=== PATIENT | female | born 1950 | race Hispanic/Latino ===

== ENCOUNTER 2017-06-15 19:02 | Emergency (ER) | payer OTHER ==
[2017-06-15] MEDS ORDERED: KETOROLAC 30 MG/ML INJ ONE (19:41)
--- NOTE | 2017-06-15 20:34 | ER ---
Nurse's Notes [facility] Name: Judi Cao Age: 67 yrs Sex: Female : 1950 Arrival Date: 06/15/2017 Time: 19:05 Bed 24 Private MD: Diagnosis: Pain in left upper arm Presentation: 06/15 19:08 Presenting complaint: Patient states: I woke up with a tight/stretching feeling in my la1 left arm this morning, I had surgery jerardo that shoulder about 4 years ago but have not had any problems until now, pt denies recent injury. Transition of care: patient was not received from another setting of care. Onset of symptoms was June 15, 2017. Care prior to arrival: None. 19:08 Method Of Arrival: Ambulatory la1 19:08 Acuity: GEORGE 3 la1 Historical: - Allergies: 19:10 No Known Allergies; la1 - PMHx: 19:10 Anxiety; Asthma; Chronic pain; Cirrhosis; Depression; Diabetes - NIDDM; Hypertension; la1 - PSHx: 19:10 Cholecystectomy; left shoulder; Hysterectomy; Hernia repair; la1 - Immunization history:: Adult Immunizations up to date. - Social history:: Smoking status: Patient/guardian denies using tobacco. Screenin:14 Abuse screen: Denies threats or abuse. Nutritional screening: No deficits noted. tl3 Tuberculosis screening: No symptoms or risk factors identified. Fall Risk None identified. Assessment: 19:14 General: Appears uncomfortable, well groomed, well developed, well nourished, Behavior tl3 is calm, cooperative, appropriate for age. Pain: Complains of pain in left arm. Neuro: Level of Consciousness is awake, alert, obeys commands, Oriented to person, place, time, situation, Appropriate for age Translator Interpreter are equal bilaterally Speech is normal, Facial symmetry appears normal. Cardiovascular: Heart tones S1 S2 present Capillary refill < 3 seconds in bilateral fingers. Respiratory: Airway is patent Trachea midline Respiratory effort is even, unlabored, relaxed, Respiratory pattern is regular, symmetrical, Breath sounds are clear bilaterally. GI: No signs and/or symptoms were reported involving the gastrointestinal system. : No signs and/or symptoms were reported regarding the genitourinary system. EENT: No signs and/or symptoms were reported regarding the EENT system. Derm: No signs and/or symptoms reported regarding the dermatologic system. Musculoskeletal: Parent/caregiver report the patient having numbness in left arm pt reports that she has trouble with ROM with the left arm for a few days, she has numbness and pain. 19:20 Reassessment: Dr Piper at bedside. tl3 Vital Signs: 19:10 BP 143 / 94; Pulse 101; Resp 15; Temp 98.2(TE); Pulse Ox 100% on R/A; Weight 72.57 kg; la1 Height 4 ft. 11 in. (149.86 cm); 19:10 Body Mass Index 32.32 (72.57 kg, 149.86 cm) la1 ED Course: 19:05 Patient arrived in ED. tw3 19:09 Triage completed. la1 19:10 Arm band placed on left wrist. la1 19:11 Andressa Storey, GEMINI is Primary Nurse. tl3 19:14 Dirk Piper MD is Attending Physician. gs 19:14 No apparent distress. Awaiting ED provider evaluation. tl3 19:14 Patient has correct armband on for positive identification. Placed in gown. Bed in low tl3 position. Call light in reach. Side rails up X 1. Adult w/ patient. equipment monitor phototypesetting on. Pulse ox on. NIBP on. 19:14 No provider procedures requiring assistance completed. tl3 20:14 Ultrasound completed. Patient tolerated well. sg3 20:14 Notified ED Physician Piper. sg3 20:34 Berhane Larios MD is Referral Physician. gs 20:34 US Extremity Venous Uni Ltd In Process Unspecified. EDMS Administered Medications: 19:44 Drug: TORadol 30 mg Route: IM; Site: right gluteus; tl3 06/16 01:31 Follow up: Response: No adverse reaction; Medication administered at discharge. tl3 Outcome: 06/15 20:34 Discharge ordered by . gs 21:07 Patient left the ED. tl3 Signatures: Dispatcher [employer] EDMS Malick Mello, RN RN laMinoo Plascencia tw3 Dirk Piper MD MD Anabel Ferraro sg3 Andressa Storey RN RN tl3
--- NOTE | 2017-06-15 20:34 | EDPHYS ---
Physician Documentation [facility] Name: Judi Cao Age: 67 yrs Sex: Female : 1950 Arrival Date: 06/15/2017 Time: 19:05 Bed 24 Private MD: ED Physician Dirk Piper HPI: 06/15 20:50 This 67 yrs old Female presents to ER via Ambulatory with complaints of Arm gs Pain. 20:50 The patient or guardian complains of pain, that is acute. The complaints affect the gs left bicep. Onset: The symptoms/episode began/occurred 2 day(s) ago, and became persistent. Modifying factors: The symptoms are alleviated by nothing. the symptoms are aggravated by movement, lifting weight. Associated signs and symptoms: Pertinent negatives: numbness, tingling. Severity of symptoms: At their worst the symptoms were moderate, in the emergency department the symptoms are unchanged. The patient has experienced similar episodes in the past, a few times, says it hurts side of her neck too. Historical: - Allergies: 19:10 No Known Allergies; la1 - PMHx: 19:10 Anxiety; Asthma; Chronic pain; Cirrhosis; Depression; Diabetes - NIDDM; Hypertension; la1 - PSHx: 19:10 Cholecystectomy; left shoulder; Hysterectomy; Hernia repair; la1 - Immunization history:: Adult Immunizations up to date. - Social history:: Smoking status: Patient/guardian denies using tobacco. ROS: 20:50 All other systems are negative. gs Exam: 20:50 Head/Face: Normocephalic, atraumatic. Eyes: Pupils equal round and reactive to light, gs extra-ocular motions intact. Lids and lashes normal. Conjunctiva and sclera are non-icteric and not injected. Cornea within normal limits. Periorbital areas with no swelling, redness, or edema. ENT: Nares patent. No nasal discharge, no septal abnormalities noted. Tympanic membranes are normal and external auditory canals are clear. Oropharynx with no redness, swelling, or masses, exudates, or evidence of obstruction, uvula midline. Mucous membranes moist. Chest/axilla: Normal chest wall appearance and motion. Nontender with no deformity. No lesions are appreciated. Cardiovascular: Regular rate and rhythm with a normal S1 and S2. No gallops, murmurs, or rubs. Normal PMI, no JVD. No pulse deficits. Respiratory: Lungs have equal breath sounds bilaterally, clear to auscultation and percussion. No rales, rhonchi or wheezes noted. No increased work of breathing, no retractions or nasal flaring. Abdomen/GI: Soft, non-tender, with normal bowel sounds. No distension or tympany. No guarding or rebound. No evidence of tenderness throughout. Back: No spinal tenderness. No costovertebral tenderness. Full range of motion. Skin: Warm, dry with normal turgor. Normal color with no rashes, no lesions, and no evidence of cellulitis. Neuro: Awake and alert, GCS 15, oriented to person, place, time, and situation. Cranial nerves II-XII grossly intact. Motor strength 5/5 in all extremities. Sensory grossly intact. Cerebellar exam normal. Normal gait. 20:50 Constitutional: The patient appears alert, awake. 20:50 Neck: External neck: tenderness, that is mild, of the left trapezius, ROM/movement: pain. 20:50 Musculoskeletal/extremity: Extremities: noted in the left bicep and left tricep: tenderness, ROM: full active range of motion, full passive range of motion, limited active range of motion due to pain, limited passive range of motion due to pain, Pulses: are normal with no appreciated deficits, Sensation intact. 20:56 ECG was reviewed by the Attending Physician. Vital Signs: 19:10 BP 143 / 94; Pulse 101; Resp 15; Temp 98.2(TE); Pulse Ox 100% on R/A; Weight 72.57 kg; la1 Height 4 ft. 11 in. (149.86 cm); 19:10 Body Mass Index 32.32 (72.57 kg, 149.86 cm) la1 MDM: 19:21 Patient medically screened. gs 20:50 Differential diagnosis: tendonitis, cerv radiculopathy, dvt. Data reviewed: vital signs, nurses notes. Response to treatment: the patient's symptoms have mildly improved after treatment, and as a result, I will discharge patient. 06/15 19:23 Order name: US Extremity Venous Uni Ltd; Complete Time: 20:56 06/15 19:23 Order name: EKG; Complete Time: 19:23 06/15 19:23 Order name: EKG - Nurse/Tech; Complete Time: 19:42 gs EC:56 Rate is 96 beats/min. Rhythm is regular. IA interval is normal. QRS interval is normal. gs QT interval is normal. T waves are Normal. No ST changes noted. Clinical impression: Normal ECG. Interpreted by me. Administered Medications: 19:44 Drug: TORadol 30 mg Route: IM; Site: right gluteus; tl3 06/16 01:31 Follow up: Response: No adverse reaction; Medication administered at discharge. tl3 Disposition: 06/15/17 20:34 Discharged to Home. Impression: Pain in left upper arm. - Condition is Stable. - Discharge Instructions: Musculoskeletal Pain. - Prescriptions for Naprosyn 500 mg Oral Tablet - take 1 tablet by ORAL route 2 times per day for 7 days take with food; 14 tablet. - Medication Reconciliation Form, Thank You Letter, Antibiotic Education, Prescription Opioid Use form. - Follow up: Berahne Larios MD; When: 2 - 3 days; Reason: Re-evaluation by your physician. Signatures: Dispatcher [employer] EDMS Malick Mello, RN RN la1 Dirk Piper MD MD Andressa Storey RN RN tl3
--- NOTE | 2017-06-15 20:53 | RAD REPORT ---
EXAM DESCRIPTION: VAS - Extremity Venous Uni Ltd - 06/15/2017 8:34 pm CLINICAL HISTORY: Left arm pain and swelling COMPARISON: None. TECHNIQUE: Real-time sonographic evaluation of the left upper extremity deep venous systems was perf ormed. FINDINGS: Normal compressibility, flow augmentation, phasic flow and spontaneous flow are identified in the left upper extremity deep venous system. No intraluminal filling defects seen. Internal jugul ar and subclavian veins are normal as well. IMPRESSION: No DVT in the left upper extremity.
--- NOTE | 2017-06-16 22:36 | EKG ---
Test Date: 2017-06-15 Test Time: 19:39:59 Security Solutions Engineer: CHERRI MEASUREMENT RESULTS: Intervals: Rate: 96 WI: 146 QRSD: 66 QT: 348 QTc: 439 [place]: P: 39 WI: 146 QRS: 29 T: 53 INTERPRETIVE STATEMENTS: Normal sinus rhythm Normal ECG Compared to ECG 01/09/2017 00:13:42 No significant changes Electronically Signed On 06-16-17 22:35:43 CDT by Nick Coughlin
== END 2017-06-15 21:07 | disposition home or self-care (01) ==
LOC: ER 19:02
DX: M79.622 Pain in left upper arm (principal); I10 Essential (primary) hypertension
CPT/HCPCS: 93005; 93971; 96372; 99284

== ENCOUNTER 2017-08-12 12:54 | Emergency (ER) | payer OTHER ==
[2017-08-12] MEDS ORDERED: MORPHINE 4 MG/ML SYR ONE (15:19)
[2017-08-12] MEDS ORDERED: NA CHLORIDE 0.9% 500 ML ONE (15:20)
[2017-08-12] MEDS ORDERED: ONDANSETRON 4 MG/2 ML VIAL ONE (15:21)
[2017-08-12 15:41] LABS: Absolute Lymphocytes (CBC) 4.1 K/uL (0.7-4.9); Absolute Monocytes 0.8 K/uL (0.1-1.3); Absolute Neutrophil 5.8 K/uL (1.8-8.0); Basophils % 0.7 % (0-1.3); Eosinophils % 2.9 % (0-4.4); Hematocrit 42.3 % (36.0-45.0); Lymphocytes % 37.2 % (15.3-44.8); MCV 93.2 fL (80-100); MPV 9.6 fL (7.6-11.3); RBC Red Blood Cell Count 4.54 M/uL (3.86-4.86)
--- NOTE | 2017-08-12 15:43 | RAD REPORT ---
EXAM DESCRIPTION: RAD - Chest Single View - 08/12/2017 3:17 pm CLINICAL HISTORY: Cough, chest pain COMPARISON: January 2017 TECHNIQUE: AP portable chest image was obtained 1505 hours . FINDINGS: Lung volumes are low. Interstitial markings are accentuated by body habitus and shallow in spiration. No true or significant change from comparison suspected. Trachea is midline. Heart and vas culature are normal. No measurable pleural effusion and no pneumothorax. No gross bony abnormality se en. No acute aortic findings suspected. IMPRESSION: Limited study without acute cardiopulmonary finding. No significant change from comparison.
[2017-08-12 15:46] LABS: Protime INR 0.92
--- NOTE | 2017-08-12 16:08 | EKG ---
Test Date: 2017-08-12 Test Time: 15:15:48 Collections Manager: HOMERO MEASUREMENT RESULTS: Intervals: Rate: 107 MD: 146 QRSD: 70 QT: 334 QTc: 445 [place]: P: 34 MD: 146 QRS: 16 T: 41 INTERPRETIVE STATEMENTS: Sinus tachycardia Otherwise normal ECG Compared to ECG 06/15/2017 19:39:59 Sinus rhythm no longer present Electronically Signed On 08-12-17 16:07:47 CDT by Nick Coughlin
[2017-08-12 16:12] LABS: Bicarbonate 27 mEq/L (21-31); Glucose Level 160 mg/dL (65-120); Potassium 4.6 mEq/L (3.6-5.0); Sodium Level 137 mEq/L (135-145)
[2017-08-12 16:18] LABS: ALT/SGPT 26 IU/L (10-60); AST/SGOT 38 IU/L (10-42); Albumin 4.7 g/dL (3.2-5.5); Alkaline Phosphatase 100 IU/L (42-121); BUN Blood Urea Nitrogen 11 mg/dL (6-20); Bilirubin Direct 0.1 mg/dL (0-0.2); Bilirubin Total 0.2 mg/dL (0.3-1.2); Magnesium 1.9 mg/dL (1.8-2.5); Protein, Total 8.2 g/dL (6.0-8.3)
[2017-08-12 16:43] LABS: Urine Blood NEGATIVE (NEG); Urine Glucose NEGATIVE (NEG); Urine Protein NEGATIVE (NEG); Urine Specific Gravity 1.025 (1.005-1.030); Urine pH 5.5 (5.0-7.0)
--- NOTE | 2017-08-12 18:14 | ER ---
Nurse's Notes [facility] Name: Judi Cao Age: 67 yrs Sex: Female : 1950 Arrival Date: 08/12/2017 Time: 13:00 Bed 2 Private MD: Out, [facility] Diagnosis: Generalized pain, arthralgia, myalgias Presentation: 08/12 13:30 Presenting complaint: Patient states: bilateral ear pain, painful cough, headache and ss body aches x 4 days. Pt reports she had a fever three days ago, but hasn't had one since. Transition of care: patient was not received from another setting of care. Onset of symptoms was August 08, 2017. Risk Assessment: Do you want to hurt yourself or someone else? Patient reports no desire to harm self or others. Initial Sepsis Screen: Does the patient meet any 2 criteria? HR > 90 bpm. Does the patient have a suspected source of infection? Yes: No. Patient's initial sepsis screen is negative. Care prior to arrival: None. 13:30 Method Of Arrival: Ambulatory ss 13:30 Acuity: GEORGE 3 ss Historical: - Allergies: 13:32 No Known Allergies; ss - Home Meds: 15:13 acetaminophen-codeine 300-30 mg Oral tab as needed [Active]; Advair Diskus 250-50 tw2 mcg/dose Inhl dsdv 1 puff 2 times per day [Active]; Lyrica 75 mg Oral 2 times per day [Active]; metformin 1,000 mg Oral tab 1 tab 2 times per day [Active]; metoprolol tartrate 25 mg Oral tab 1 tab once daily [Active]; Symbicort 80-4.5 mcg/actuation inhalation HFAA 2 puffs 2 times per day [Active]; - PMHx: 13:32 Anxiety; Asthma; Chronic pain; Cirrhosis; Depression; Diabetes - NIDDM; Hypertension; ss - PSHx: 13:32 Cholecystectomy; left shoulder; Hysterectomy; Hernia repair; ss - Immunization history:: Adult Immunizations up to date. - Social history:: Smoking status: Patient/guardian denies using tobacco. - Ebola Screening: : Patient denies exposure to infectious person Patient denies travel to an Ebola-affected area in the 21 days before illness onset. Screenin:09 Abuse screen: Denies threats or abuse. Nutritional screening: No deficits noted. tw2 Tuberculosis screening: No symptoms or risk factors identified. Fall Risk None identified. Assessment: 15:08 General: Appears in no apparent distress. obese, well groomed, Behavior is calm, tw2 cooperative, appropriate for age. Pain: Complains of pain in "all over it hurts and yesterday it hurt in my chest real bad". Neuro: Level of Consciousness is awake, alert, obeys commands, Oriented to person, place, time, situation. Cardiovascular: Heart tones S1 S2 Capillary refill < 3 seconds Patient's skin is warm and dry. Respiratory: Reports cough that is non-productive, Airway is patent Respiratory effort is even, unlabored, Respiratory pattern is regular, symmetrical, Breath sounds are clear bilaterally. GI: Abdomen is round non-distended, obese, Bowel sounds present X 4 quads. : No signs and/or symptoms were reported regarding the genitourinary system. EENT: Reports nasal congestion pain in right ear and left ear. Derm: Skin is intact, is healthy with good turgor, Skin temperature is warm. Musculoskeletal: Range of motion: intact in all extremities. 16:18 Reassessment: Patient appears in no apparent distress at this time. Patient and/or tw2 family updated on plan of care and expected duration. Pain level reassessed. Patient is alert, oriented x 3, equal unlabored respirations, skin warm/dry/pink. pt states "it hurts in my sinuses" Patient states feeling better. 17:00 Reassessment: Patient appears in no apparent distress at this time. Patient and/or tw2 family updated on plan of care and expected duration. Pain level reassessed. Patient is alert, oriented x 3, equal unlabored respirations, skin warm/dry/pink. 17:53 Reassessment: Patient appears in no apparent distress at this time. Patient and/or tw2 family updated on plan of care and expected duration. Pain level reassessed. Patient is alert, oriented x 3, equal unlabored respirations, skin warm/dry/pink. 18:26 Reassessment: Patient appears in no apparent distress at this time. Patient and/or tw2 family updated on plan of care and expected duration. Pain level reassessed. Patient is alert, oriented x 3, equal unlabored respirations, skin warm/dry/pink. Vital Signs: 13:32 BP 134 / 88; Pulse 108; Resp 18; Temp 98.2(TE); Pulse Ox 97% on R/A; Weight 77.11 kg; ss Height 4 ft. 11 in. (149.86 cm); Pain 8/10; 15:39 BP 140 / 88; Pulse 103; Resp 16; Pulse Ox 98% on R/A; tw2 16:19 BP 136 / 92; Pulse 97; Resp 17; Pulse Ox 96% on R/A; tw2 17:52 BP 135 / 84; Pulse 102; Resp 17; Pulse Ox 99% on R/A; tw2 13:32 Body Mass Index 34.34 (77.11 kg, 149.86 cm) ss ED Course: 13:00 Patient arrived in ED. sb2 13:01 Out, Town is Private Physician. sb2 13:32 Triage completed. ss 13:32 Arm band placed on right wrist. ss 14:25 No provider procedures requiring assistance completed. Inserted saline lock: 20 gauge tw2 in left antecubital area, using aseptic technique. Blood collected. 15:02 Therese Delacruz, RN is Primary Nurse. tw2 15:04 Tenzin Torrez MD is Attending Physician. kdr 15:08 Placed in gown. Bed in low position. Side rails up X 1. Adult w/ patient. Cardiac tw2 monitor on. Pulse ox on. NIBP on. 15:15 X-ray completed. Portable x-ray completed in exam room. Patient tolerated procedure kc2 well. 15:16 XRAY Chest (1 view) In Process Unspecified. EDMS 15:22 EKG done, by flight technician. reviewed by Tenzin Torrez MD. sm3 18:25 IV discontinued, intact, bleeding controlled, No redness/swelling at site. Pressure tw2 dressing applied. Administered Medications: 15:27 Drug: morphine 2 mg Route: IVP; Site: left antecubital; tw2 16:18 Follow up: Response: No adverse reaction; Pain is decreased tw2 15:27 Drug: Zofran 2 mg Route: IVP; Site: left antecubital; tw2 16:18 Follow up: Response: No adverse reaction tw2 15:29 Drug: NS 0.9% 500 ml Route: IV; Rate: bolus; Site: left antecubital; tw2 16:18 Follow up: Response: No adverse reaction; IV Status: Completed infusion; IV Intake: tw2 500ml Intake: 16:18 IV: 500ml; Total: 500ml. tw2 Outcome: 18:14 Discharge ordered by . kdr 18:25 Discharged to home ambulatory, with significant other. tw2 18:25 Condition: stable 18:25 Discharge instructions given to patient, significant other, Instructed on discharge instructions, follow up and referral plans. Demonstrated understanding of instructions, follow-up care. 18:26 Patient left the ED. tw2 Signatures: Dispatcher [employer] EDMS Tenzin Torrez MD MD kdr Meena Addison, RN RN ss Therese Delacruz RN RN tw2 Alysha De Souza2 Maribell Carrillo 2 Gabriella Lagos 3
--- NOTE | 2017-08-12 18:14 | EDPHYS ---
Physician Documentation [facility] Name: Judi Cao Age: 67 yrs Sex: Female : 1950 Arrival Date: 08/12/2017 Time: 13:00 Bed 2 Private MD: Out, [facility], [facility] ED Physician Tenzin Torrez HPI: 08/12 21:55 This 67 yrs old Female presents to ER via Ambulatory with complaints of Chest kdr Congestion, Ear Pain, Fever. 21:55 The patient has been hurting all over for the past four days including her ears kdr bilaterally.. Onset: The symptoms/episode began/occurred gradually, 4 day(s) ago. Severity of symptoms: At their worst the symptoms were mild in the emergency department the symptoms are unchanged. The patient has not experienced similar symptoms in the past. The patient has not recently seen a physician. Historical: - Allergies: 13:32 No Known Allergies; ss - Home Meds: 15:13 acetaminophen-codeine 300-30 mg Oral tab as needed [Active]; Advair Diskus 250-50 tw2 mcg/dose Inhl dsdv 1 puff 2 times per day [Active]; Lyrica 75 mg Oral 2 times per day [Active]; metformin 1,000 mg Oral tab 1 tab 2 times per day [Active]; metoprolol tartrate 25 mg Oral tab 1 tab once daily [Active]; Symbicort 80-4.5 mcg/actuation inhalation HFAA 2 puffs 2 times per day [Active]; - PMHx: 13:32 Anxiety; Asthma; Chronic pain; Cirrhosis; Depression; Diabetes - NIDDM; Hypertension; ss - PSHx: 13:32 Cholecystectomy; left shoulder; Hysterectomy; Hernia repair; ss - Immunization history:: Adult Immunizations up to date. - Social history:: Smoking status: Patient/guardian denies using tobacco. - Ebola Screening: : Patient denies exposure to infectious person Patient denies travel to an Ebola-affected area in the 21 days before illness onset. ROS: 21:55 Constitutional: Negative for fever, chills, and weight loss - she has had generalized kdr myalgias Eyes: Negative for injury, pain, redness, and discharge, ENT: Negative for injury, pain, and discharge - except for bilatearl ear discomfort - has been cleaning her ears with Q-tips without relief Neck: Negative for injury, pain, and swelling, Cardiovascular: Negative for chest pain, palpitations, and edema, Respiratory: Negative for shortness of breath, cough, wheezing, and pleuritic chest pain, Abdomen/GI: Negative for abdominal pain, nausea, vomiting, diarrhea, and constipation, Back: Negative for injury and pain, : Negative for injury, bleeding, discharge, and swelling, MS/Extremity: Negative for injury and deformity, Skin: Negative for injury, rash, and discoloration, Neuro: Negative for headache, weakness, numbness, tingling, and seizure activity. Psych: Negative for depression, anxiety, suicide ideation, homicidal ideation, and hallucinations, Allergy/Immunology: Negative for hives, rash, and allergies, Endocrine: Negative for neck swelling, polydipsia, polyuria, polyphagia, and marked weight changes, Hematologic/Lymphatic: Negative for swollen nodes, abnormal bleeding, and unusual bruising. Exam: 21:55 Constitutional: This is a well developed, well nourished patient who is awake, alert, kdr and in no acute distress. Head/Face: Normocephalic, atraumatic. Eyes: Pupils equal round and reactive to light, extra-ocular motions intact. Lids and lashes normal. Conjunctiva and sclera are non-icteric and not injected. Cornea within normal limits. Periorbital areas with no swelling, redness, or edema. ENT: Nares patent. No nasal discharge, no septal abnormalities noted. Tympanic membranes are normal and external auditory canals are clear. Oropharynx with no redness, swelling, or masses, exudates, or evidence of obstruction, uvula midline. Mucous membranes moist. Neck: Trachea midline, no thyromegaly or masses palpated, and no cervical lymphadenopathy. Supple, full range of motion without nuchal rigidity, or vertebral point tenderness. No Meningismus. Chest/axilla: Normal chest wall appearance and motion. Nontender with no deformity. No lesions are appreciated. Cardiovascular: Regular rate and rhythm with a normal S1 and S2. No gallops, murmurs, or rubs. Normal PMI, no JVD. No pulse deficits. Respiratory: Lungs have equal breath sounds bilaterally, clear to auscultation and percussion. No rales, rhonchi or wheezes noted. No increased work of breathing, no retractions or nasal flaring. Abdomen/GI: Soft, non-tender, with normal bowel sounds. No distension or tympany. No guarding or rebound. No evidence of tenderness throughout. Back: No spinal tenderness. No costovertebral tenderness. Full range of motion. Skin: Warm, dry with normal turgor. Normal color with no rashes, no lesions, and no evidence of cellulitis. MS/ Extremity: Pulses equal, no cyanosis. Neurovascular intact. Full, normal range of motion. Neuro: Awake and alert, GCS 15, oriented to person, place, time, and situation. Cranial nerves II-XII grossly intact. Motor strength 5/5 in all extremities. Sensory grossly intact. Cerebellar exam normal. Normal gait. Psych: Awake, alert, with orientation to person, place and time. Behavior, mood, and affect are within normal limits. Vital Signs: 13:32 BP 134 / 88; Pulse 108; Resp 18; Temp 98.2(TE); Pulse Ox 97% on R/A; Weight 77.11 kg; ss Height 4 ft. 11 in. (149.86 cm); Pain 8/10; 15:39 BP 140 / 88; Pulse 103; Resp 16; Pulse Ox 98% on R/A; tw2 16:19 BP 136 / 92; Pulse 97; Resp 17; Pulse Ox 96% on R/A; tw2 17:52 BP 135 / 84; Pulse 102; Resp 17; Pulse Ox 99% on R/A; tw2 13:32 Body Mass Index 34.34 (77.11 kg, 149.86 cm) ss MDM: 18:14 Patient medically screened. kdr 21:55 Data reviewed: vital signs, nurses notes, lab test result(s), EKG, radiologic studies. kdr Counseling: I had a detailed discussion with the patient and/or guardian regarding: the historical points, exam findings, and any diagnostic results supporting the discharge/admit diagnosis, lab results, radiology results, the need for outpatient follow up. Special discussion: Based on the patient's history, exam, and Dx evaluation, there is no indication for emergent intervention or inpatient Tx. It is understood by the patient/guardian that if the Sx's persist or worsen they need to return immediately for re-evaluation. Based on the patient's Hx, exam, and Dx evaluation, there is no indication for emergent surgery or inpatient Tx. It is understood by the patient/guardian that if the Sx's persist or worsen they need to return immediately for re-evaluation. I discussed with the patient/guardian in detail that at this point there is no indication for admission to the hospital. It is understood, however, that if the symptoms persist or worsen the patient needs to return immediately for re-evaluation. 08/12 15:04 Order name: Basic Metabolic Panel; Complete Time: 18:12 kdr 08/12 15:04 Order name: BNP; Complete Time: 18:12 kdr 08/12 15:04 Order name: CBC with Diff; Complete Time: 16:14 kdr 08/12 15:04 Order name: LFT's; Complete Time: 18:12 kdr 08/12 15:04 Order name: Magnesium; Complete Time: 18:12 kdr 08/12 15:04 Order name: PT-INR; Complete Time: 16:14 kdr 08/12 15:04 Order name: Ptt, Activated; Complete Time: 16:14 kdr 08/12 15:04 Order name: Troponin (emerg Dept Use Only); Complete Time: 16:14 kdr 08/12 15:04 Order name: XRAY Chest (1 view); Complete Time: 16:14 kdr 08/12 16:34 Order name: Troponin (emerg Dept Use Only); Complete Time: 18:12 kdr 08/12 16:40 Order name: Urine Dipstick--Ancillary (enter results); Complete Time: 18:12 ag 08/12 15:04 Order name: EKG; Complete Time: 15:05 kdr 08/12 15:04 Order name: Cardiac monitoring; Complete Time: 15:14 kdr 08/12 15:04 Order name: EKG - Nurse/Tech; Complete Time: 15:14 kdr 08/12 15:04 Order name: IV Saline Lock; Complete Time: 15:14 kdr 08/12 15:04 Order name: Labs collected and sent; Complete Time: 15:31 kdr 08/12 15:04 Order name: O2 Per Protocol; Complete Time: 15:14 kdr 08/12 15:04 Order name: O2 Sat Monitoring; Complete Time: 15:14 kdr 08/12 15:04 Order name: Urine Dipstick-Ancillary (obtain specimen); Complete Time: 16:24 kdr Administered Medications: 15:27 Drug: morphine 2 mg Route: IVP; Site: left antecubital; tw2 16:18 Follow up: Response: No adverse reaction; Pain is decreased tw2 15:27 Drug: Zofran 2 mg Route: IVP; Site: left antecubital; tw2 16:18 Follow up: Response: No adverse reaction tw2 15:29 Drug: NS 0.9% 500 ml Route: IV; Rate: bolus; Site: left antecubital; tw2 16:18 Follow up: Response: No adverse reaction; IV Status: Completed infusion; IV Intake: tw2 500ml Disposition: 08/12/17 18:14 Discharged to Home. Impression: Generalized pain, arthralgia, myalgias. - Condition is Stable. - Discharge Instructions: Chronic Pain, Pain Without a Known Cause, Chest Wall Pain, [id number], Arthralgia, [id number]. - Medication Reconciliation Form, Thank You Letter, Family Work Release form. - Follow up: Private Physician; When: 2 - 3 days; Reason: If symptoms return, Further diagnostic work-up, Recheck today's complaints, Continuance of care, Re-evaluation by your physician. - Problem is an ongoing problem. - Symptoms have improved. Signatures: Dispatcher [employer] EDTenzin Allen MD MD kdr Meena Addison RN RN ss Therese Delacruz RN RN tw2 Corrections: (The following items were deleted from the chart) 18:26 18:14 08/12/2017 18:14 Discharged to Home. Impression: Generalized pain, arthralgia, tw2 myalgias. Condition is Stable. Forms are Medication Reconciliation Form, Thank You Letter, Antibiotic Education, Prescription Opioid Use. Follow up: Private Physician; When: 2 - 3 days; Reason: If symptoms return, Further diagnostic work-up, Recheck today's complaints, Continuance of care, Re-evaluation by your physician. Problem is an ongoing problem. Symptoms have improved. kdr
== END 2017-08-12 18:26 | disposition home or self-care (01) ==
LOC: ER 12:54
DX: M79.1 Myalgia (principal); M25.50 Pain in unspecified joint; I10 Essential (primary) hypertension; E11.9 Type 2 diabetes mellitus without complications; F32.9 Major depressive disorder, single episode, unspecified; F41.9 Anxiety disorder, unspecified; J45.909 Unspecified asthma, uncomplicated
CPT/HCPCS: 36415; 71045; 80048; 80076; 81003; 83735; 83880; 84484 ×2; 85025; 85610; 85730; 93005; 96361; 96374; 96375; 99284; J2405

== ENCOUNTER 2018-01-01 17:27 | Emergency (ER) | payer OTHER ==
[2018-01-01 18:48] LABS: Absolute Lymphocytes (CBC) 2.8 K/uL (0.7-4.9); Absolute Monocytes 0.4 K/uL (0.1-1.3); Absolute Neutrophil 4.6 K/uL (1.8-8.0); Basophils % 0.9 % (0-1.3); Eosinophils % 2.2 % (0-4.4); Hematocrit 37.6 % (36.0-45.0); Lymphocytes % 34.6 % (15.3-44.8); MCH 30.9 pg (27.0-35.0); MCV 93.2 fL (80-100); MPV 9.7 fL (7.6-11.3); Monocytes % 5.4 % (3.3-12.3); RBC Red Blood Cell Count 4.03 M/uL (3.86-4.86)
[2018-01-01 19:01] LABS: Albumin 4.1 g/dL (3.4-5.0); Bilirubin Total 0.2 mg/dL (0.2-1.0); Potassium 4.4 mmol/L (3.5-5.1); Protein, Total 7.5 g/dL (6.4-8.2)
--- NOTE | 2018-01-01 19:10 | ER ---
Nurse's Notes [facility] Name: Judi Cao Age: 67 yrs Sex: Female : 1950 Arrival Date: 01/01/2018 Time: 17:30 Bed 20 Private MD: Diagnosis: Sciatica of the Left Lower Extremity Presentation: 01/01 17:34 Presenting complaint: Patient states: left leg numbness in the morning after waking up, sv pt moves around during the day and the numbness goes away but the pain remains. Pain is from left hip/buttock down the left leg. Transition of care: patient was not received from another setting of care. Onset of symptoms is unknown. Care prior to arrival: None. 17:34 Method Of Arrival: Ambulatory sv 17:34 Acuity: GEORGE 3 sv 19:30 Risk Assessment: Do you want to hurt yourself or someone else? Patient reports no jd3 desire to harm self or others. Initial Sepsis Screen: Does the patient meet any 2 criteria? No. Patient's initial sepsis screen is negative. Does the patient have a suspected source of infection? No. Patient's initial sepsis screen is negative. Triage Assessment: 17:34 General: Appears uncomfortable, Behavior is calm, cooperative, appropriate for age. sv Pain: Complains of pain in left gluteus za and left leg Pain currently is 9 out of 10 on a pain scale. Neuro: Level of Consciousness is awake, alert, obeys commands, Oriented to person, place, time, situation, Moves all extremities. Full function Gait is steady. Respiratory: Respiratory effort is even, unlabored, Respiratory pattern is regular, symmetrical. Historical: - Allergies: 17:51 No Known Allergies; sv - PMHx: 17:51 Anxiety; Asthma; Chronic pain; Cirrhosis; Depression; Diabetes - NIDDM; Hypertension; sv - PSHx: 17:51 Cholecystectomy; left shoulder; Hysterectomy; Hernia repair; sv - Immunization history:: Flu vaccine is not up to date. - Social history:: Smoking status: Patient/guardian denies using tobacco, Patient/guardian denies using alcohol. - Ebola Screening: : No symptoms or risks identified at this time. Screenin:29 Abuse screen: Denies threats or abuse. Nutritional screening: No deficits noted. jd3 Tuberculosis screening: No symptoms or risk factors identified. Fall Risk Ambulatory Aid- None/Bed Rest/Nurse Assist (0 pts). Gait- Weak (10 pts.). Mental Status- Oriented to own ability (0 pts). Total Nolasco Fall Scale indicates No Risk (0-24 pts). Assessment: 19:02 General: Appears in no apparent distress. Behavior is calm, cooperative, appropriate jd3 for age. Pain: Complains of pain in left hip Pain radiates to left leg Quality of pain is described as sharp. Neuro: Level of Consciousness is awake, alert, obeys commands, Oriented to person, place, time, situation. Cardiovascular: Capillary refill < 3 seconds Patient's skin is warm and dry. Respiratory: Airway is patent Respiratory effort is even, unlabored, Respiratory pattern is regular, symmetrical. GI: No signs and/or symptoms were reported involving the gastrointestinal system. : No signs and/or symptoms were reported regarding the genitourinary system. EENT: No signs and/or symptoms were reported regarding the EENT system. Derm: Skin is intact, Skin is dry, Skin is normal, Skin temperature is warm. Musculoskeletal: Circulation, motion, and sensation intact. Range of motion: intact in all extremities. 19:27 Reassessment: Patient appears in no apparent distress at this time. No changes from jd3 previously documented assessment. Patient and/or family updated on plan of care and expected duration. Pain level reassessed. Patient is alert, oriented x 3, equal unlabored respirations, skin warm/dry/pink. reported understanding of discharge instructions. Vital Signs: 17:34 BP 126 / 74; Pulse 91; Resp 18; Temp 98.9; Pulse Ox 98% ; Weight 77.11 kg; Height 4 ft. sv 11 in. (149.86 cm); Pain 9/10; 19:28 BP 128 / 82; Pulse 90; Resp 17 S; Pulse Ox 99% on R/A; jd3 17:34 Body Mass Index 34.34 (77.11 kg, 149.86 cm) sv ED Course: 17:30 Patient arrived in ED. rg4 17:34 Arm band placed on Patient placed in an exam room, on a stretcher, on pulse oximetry. sv 17:50 Triage completed. sv 17:57 Yung Salazar MD is Attending Physician. wa 18:30 Initial lab(s) drawn, by me, sent to lab. kr2 18:34 Laurie Vargas, RN is Primary Nurse. kr2 19:08 Rivas Stein MD is Referral Physician. 19: Patient has correct armband on for positive identification. Bed in low position. Call jd3 light in reach. Side rails up X 1. 19:29 No provider procedures requiring assistance completed. Patient did not have IV access jd3 during this emergency room visit. Administered Medications: No medications were administered Outcome: 19:09 Discharge ordered by . 19: Discharged to home ambulatory. jd3 19:29 Condition: stable 19:29 Discharge instructions given to patient, Instructed on discharge instructions, follow up and referral plans. medication usage, Demonstrated understanding of instructions, follow-up care, medications, Prescriptions given X 2. 19:30 Patient left the ED. jd3 Signatures: Coreen Germain, RN Trinity Gutierrez rg4 Yung Salazar MD MD wa Davies, Jonathon, RN RN jLaurie Villarreal, RN RN kr2
--- NOTE | 2018-01-01 19:10 | EDPHYS ---
Physician Documentation [facility] Name: Judi Cao Age: 67 yrs Sex: Female : 1950 Arrival Date: 01/01/2018 Time: 17:30 Bed 20 Private MD: ED Physician Yung Salazar HPI: 01/01 18:15 This 67 yrs old Female presents to ER via Ambulatory with complaints of wa NUMBNESS OF LEG. 18:15 The patient presents with pain, that is chronic, numbness L leg . The complaints affect wa the left leg. Context: resulted from an unknown cause, the patient can fully bear weight, the patient is able to ambulate, with mild difficulty, Problem is a result from a previous injury: No. Context: states L buttock area pain radiates to L pinky toe. on-going x 1 year. worse int he morning. improves throughout the day. states taking tylenol and aleve for the pains. sometimes take as many as 12 tylenols due to the pain. worse last 3 days. denies fever or chills. denies incontinence. Onset: The symptoms/episode began/occurred 1 year(s) ago. Modifying factors: The symptoms are alleviated by nothing. the symptoms are aggravated by weight bearing. Associated signs and symptoms: Pertinent positives: numbness, Pertinent negatives calf tenderness, fever, swelling, warmth, weakness. Treatment prior to arrival includes: took 3 tylenols today, COMPONENT LAB TECH. Severity of symptoms: At their worst the symptoms were moderate, in the emergency department the symptoms are actually worse. The patient has experienced similar episodes in the past. The patient has not recently seen a physician. Historical: - Allergies: 17:51 No Known Allergies; sv - PMHx: 17:51 Anxiety; Asthma; Chronic pain; Cirrhosis; Depression; Diabetes - NIDDM; Hypertension; sv - PSHx: 17:51 Cholecystectomy; left shoulder; Hysterectomy; Hernia repair; sv - Immunization history:: Flu vaccine is not up to date. - Social history:: Smoking status: Patient/guardian denies using tobacco, Patient/guardian denies using alcohol. - Ebola Screening: : No symptoms or risks identified at this time. ROS: 18:21 Constitutional: Negative for fever, chills, and weight loss, Eyes: Negative for injury, wa pain, redness, and discharge, ENT: Negative for injury, pain, and discharge, Neck: Negative for injury, pain, and swelling, Cardiovascular: Negative for chest pain, palpitations, and edema, Respiratory: Negative for shortness of breath, cough, wheezing, and pleuritic chest pain, Abdomen/GI: Negative for abdominal pain, nausea, vomiting, diarrhea, and constipation, Back: Negative for injury and pain, : Negative for injury, bleeding, discharge, and swelling, MS/Extremity: Negative for injury and deformity, Skin: Negative for injury, rash, and discoloration, Psych: Negative for depression, anxiety, suicide ideation, homicidal ideation, and hallucinations. 18:21 Neuro: Positive for numbness, of the left leg, Negative for gait disturbance, weakness. 18:21 All other systems are negative. Exam: 18:22 Constitutional: This is a well developed, well nourished patient who is awake, alert, wa and in no acute distress. Head/Face: Normocephalic, atraumatic. Eyes: Pupils equal round and reactive to light, extra-ocular motions intact. Lids and lashes normal. Conjunctiva and sclera are non-icteric and not injected. Cornea within normal limits. Periorbital areas with no swelling, redness, or edema. ENT: Nares patent. No nasal discharge, no septal abnormalities noted. Tympanic membranes are normal and external auditory canals are clear. Oropharynx with no redness, swelling, or masses, exudates, or evidence of obstruction, uvula midline. Mucous membranes moist. Neck: Trachea midline, no thyromegaly or masses palpated, and no cervical lymphadenopathy. Supple, full range of motion without nuchal rigidity, or vertebral point tenderness. No Meningismus. Chest/axilla: Normal chest wall appearance and motion. Nontender with no deformity. No lesions are appreciated. Cardiovascular: Regular rate and rhythm with a normal S1 and S2. No gallops, murmurs, or rubs. Normal PMI, no JVD. No pulse deficits. Respiratory: Lungs have equal breath sounds bilaterally, clear to auscultation and percussion. No rales, rhonchi or wheezes noted. No increased work of breathing, no retractions or nasal flaring. Abdomen/GI: Soft, non-tender, with normal bowel sounds. No distension or tympany. No guarding or rebound. No evidence of tenderness throughout. Back: No spinal tenderness. No costovertebral tenderness. Full range of motion. Skin: Warm, dry with normal turgor. Normal color with no rashes, no lesions, and no evidence of cellulitis. Neuro: Awake and alert, GCS 15, oriented to person, place, time, and situation. Cranial nerves II-XII grossly intact. Motor strength 5/5 in all extremities. Sensory grossly intact. Cerebellar exam normal. Normal gait. Psych: Awake, alert, with orientation to person, place and time. Behavior, mood, and affect are within normal limits. 18:22 Musculoskeletal/extremity: Extremities: grossly normal except: Tender to deep palpation of the L glut. positive SLR on the left side. no swelling, edema, redness, or increased warmth noted on the left leg. normothermic. nml coloration. 2+ DP pulses bilaterally. Vital Signs: 17:34 BP 126 / 74; Pulse 91; Resp 18; Temp 98.9; Pulse Ox 98% ; Weight 77.11 kg; Height 4 ft. sv 11 in. (149.86 cm); Pain 9/10; 19:28 BP 128 / 82; Pulse 90; Resp 17 S; Pulse Ox 99% on R/A; jd3 17:34 Body Mass Index 34.34 (77.11 kg, 149.86 cm) sv MDM: 17:57 Patient medically screened. wa 18:23 Differential diagnosis: symptoms concerning for sciatica. no incontinence. consider wa valium to augment pain control. close f/u with neurology. concern for chronic supratherapeutic use of tylenol. advised against high doses over 4 grams per day. will check LFTs. pt carries a dx of cirrhosis of the liver however. 19:07 Data reviewed:. Test interpretation: by ED physician or midlevel provider: labs noted wa for hyperglycemia. LFTs wnl. . ED course: will d/c with meds and close f/u with neurology for further eval. 01/01 18:07 Order name: CBC with Diff; Complete Time: 18:59 wa 01/01 18:07 Order name: CMP; Complete Time: 19:06 ks Administered Medications: No medications were administered Disposition: 01/01/18 19:09 Discharged to Home. Impression: Sciatica of the Left Lower Extremity. - Condition is Stable. - Discharge Instructions: Sciatica, [id number]. - Prescriptions for Valium 5 mg Oral Tablet - take 1 tablet by ORAL route At bedtime As needed; 6 tablet. Prednisone 20 mg Oral Tablet - take 2 tablets by ORAL route once daily for 4 days; 8 tablet. - Medication Reconciliation Form, Thank You Letter, Antibiotic Education, Prescription Opioid Use form. - Follow up: Rivas Stein MD; When: 2 - 3 days; Reason: Recheck today's complaints. - Problem is an ongoing problem. - Symptoms are unchanged. - Notes: follow up with the neurologist within 2-3 days for further evaluation. take the valium with the tylenol and aleve to help with the pain. take the prednisone as prescribed. take your blood sugar medicine while on prednisone as it will increase your blood sugar levels. do not take more than 8 pills of acetaminophen a day as it has the potential to damage your liver as discussed with you Signatures: Dispatcher [employer] Coreen Field RN RN Yung Salazar MD MD wa Davies, Jonathon, RN RN jd3 Corrections: (The following items were deleted from the chart) 19:30 19:09 01/01/2018 19:09 Discharged to Home. Impression: Sciatica of the Left Lower jd3 Extremity. Condition is Stable. Forms are Medication Reconciliation Form, Thank You Letter, Antibiotic Education, Prescription Opioid Use. Follow up: Rivas Stein; When: 2 - 3 days; Reason: Recheck today's complaints. Problem is an ongoing problem. Symptoms are unchanged. sanju
== END 2018-01-01 19:30 | disposition home or self-care (01) ==
LOC: ER 17:27
DX: M54.32 Sciatica, left side (principal)
CPT/HCPCS: 36415; 80053; 85025; 99283

== ENCOUNTER 2018-01-07 14:07 | Inpatient (IN) | payer OTHER ==
[2018-01-07] MEDS ORDERED: LEVALBUTEROL 1.25 MG/3 ML NEB ONE (14:48)
[2018-01-07] MEDS ORDERED: METHYLPREDNISOLONE 125 MG INJ ONE (14:48)
[2018-01-07] MEDS ORDERED: ONDANSETRON 4 MG/2 ML VIAL ONE (14:53)
--- NOTE | 2018-01-07 15:03 | RAD REPORT ---
EXAM DESCRIPTION: RAD - Chest Single View - 01/07/2018 2:55 pm CLINICAL HISTORY: DYSPNEA Chest pain. COMPARISON: Chest Single View dated 08/12/2017; Chest Single View dated 01/09/2017; Chest Single View dated 12/10/2016 FINDINGS: Portable technique limits examination quality. The lungs are mildly underinflated but grossly clear. The heart is normal in size. No displaced fract ures. IMPRESSION: Mild underinflated lungs.
[2018-01-07] MEDS ORDERED: NA CHLORIDE 0.9% 500 ML ONE ×2 (15:10→15:59)
[2018-01-07] MEDS ORDERED: ACETAMINOPHEN 500 MG TAB ONE (15:47)
[2018-01-07] MEDS ORDERED: IBUPROFEN 400 MG TAB ONE (15:48)
[2018-01-07 15:52] LABS: Absolute Lymphocytes (CBC) 1.6 K/uL (0.7-4.9); Absolute Monocytes 0.7 K/uL (0.1-1.3); Absolute Neutrophil 8.2 K/uL (1.8-8.0); Basophils % 0.5 % (0-1.3); Eosinophils % 1.5 % (0-4.4); Hematocrit 39.6 % (36.0-45.0); Lymphocytes % 15.1 % (15.3-44.8); MCH 31.6 pg (27.0-35.0); MCV 92.3 fL (80-100); Monocytes % 6.9 % (3.3-12.3); RBC Red Blood Cell Count 4.29 M/uL (3.86-4.86)
[2018-01-07 16:07] LABS: ALT/SGPT 124 U/L (12-78); AST/SGOT 264 U/L (15-37); Albumin 3.9 g/dL (3.4-5.0); Alkaline Phosphatase 116 U/L (45-117); BUN Blood Urea Nitrogen 20 mg/dL (7-18); Bicarbonate 21 mmol/L (21-32); Bilirubin Direct 0.2 mg/dL (0-0.2); Bilirubin Total 0.4 mg/dL (0.2-1.0); CKMB Creatine Kinase MB < 1.0 ng/mL (0.3-3.6); Creatine Phosphokinase 56 U/L (26-192); Glucose Level 212 mg/dL (74-106); Lipase 203 U/L (73-393); Magnesium 1.9 mg/dL (1.8-2.4); NT PRO-BNP 71 pg/mL (<125); Potassium 4.1 mmol/L (3.5-5.1); Protein, Total 7.7 g/dL (6.4-8.2); Sodium Level 136 mmol/L (136-145); Troponin (Emerg Dept Use Only) < 0.02 ng/mL (0.0-0.045)
--- NOTE | 2018-01-07 16:55 | RAD REPORT ---
EXAM DESCRIPTION: CT - Abdomen Pelvis W Contrast - 01/07/2018 4:37 pm CLINICAL HISTORY: Abdominal pain, hypertension, prior hysterectomy, cholecystectomy and hernia repai r COMPARISON: None. TECHNIQUE: Biphasic, helical CT imaging of the abdomen and pelvis was performed following 100 ml non -ionic IV contrast. No oral contrast. All CT scans are performed using dose optimization technique as appropriate and may include automated exposure control or mA/KV adjustment according to patient size. FINDINGS: No suspicious findings in the lung bases. The liver, spleen, and pancreas show no focal findings. Fatty infiltration of liver is present. Gallb ladder is surgically absent. Biliary tree within normal limits. Symmetric renal function is seen with no hydronephrosis or suspicious renal mass. No pyelonephritis o r acute renal parenchymal process. No adrenal abnormality. Urinary bladder shows no suspicious findin g. Calcification is present without mass at the vaginal cuff. Ovaries are absent or atrophic. No adne xal mass. No dilated bowel loops or bowel wall thickening. Appendix is normal. No free air, free fluid or infla mmatory stranding. No mass or bulky lymphadenopathy. There is complete atrophy of the right-sided rectus abdominis musculature. There is a pronounced laxi ty to the right-side anterior abdominal wall. There is a pronounced bulging of the right side of the abdomen without a measurable defect in the abdominal wall fascia. Disc and bony degenerative changes are present. No pathologic bone process. IMPRESSION: No obstruction, free air or surgically emergent finding. Patient has right-sided abdominal wall muscle atrophy with a pronounced protrusion of the right later al abdomen and abdominal contents. There is thinning and convex bulging of the abdominal wall fascia but no large or measurable hernia defect. Diffuse fatty infiltration of the liver.
[2018-01-07 17:15] LABS: Urine Blood NEGATIVE (NEG); Urine Glucose TRACE (NEG); Urine Protein NEGATIVE (NEG); Urine pH 5.5 (5.0-7.0)
[2018-01-07] MEDS ORDERED: CEFTRIAXONE/SWI 1gm 1 GM/10 ML SYR ONE (17:22)
[2018-01-07 17:28] LABS: Urine Bacteria LOADED /HPF (<20); Urine Culture Reflex Order NOT NEEDED; Urine RBC NONE SEEN /HPF (NONE SEEN)
[2018-01-07 17:31] LABS: Platelet Estimate ADEQ
[2018-01-07 17:32] LABS: Blood Morphology Comment NOT SEEN (NOT SEEN)
[2018-01-07] MEDS ORDERED: HYDRALAZINE HCL 20 MG/ML VIAL IV PRN (17:36)
--- NOTE | 2018-01-07 17:39 | EDPHYS ---
Physician Documentation [facility] Name: Judi Cao Age: 67 yrs Sex: Female : 1950 Arrival Date: 01/07/2018 Time: 14:11 Bed 15 Private MD: ED Physician Derek Hinton HPI: 01/07 14:42 This 67 yrs old Female presents to ER via EMS with complaints of High Blood rn Sugar. 14:42 REports at hair salon today, felt bad this morning with chills and sob, felt worse at [facility], got lightheaded and didn't feel ok, no syncope, denies taking her metformin today. + chest pain and sob. + nausea. . Onset: The symptoms/episode began/occurred this morning. Severity of symptoms: At their worst the symptoms were moderate in the emergency department the symptoms are unchanged. The patient has experienced similar episodes in the past. The patient has not recently seen a physician. Historical: - Allergies: 14:18 No Known Allergies; tw2 - Home Meds: 14:16 acetaminophen-codeine 300-30 mg Oral tab as needed [Active]; Advair Diskus 250-50 tw2 mcg/dose Inhl dsdv 1 puff 2 times per day [Active]; Lyrica 75 mg Oral 2 times per day [Active]; metformin 1,000 mg Oral tab 1 tab 2 times per day [Active]; Symbicort 80-4.5 mcg/actuation inhalation HFAA 2 puffs 2 times per day [Active]; Lisinopril Oral [Active]; - PMHx: 14:16 Anxiety; Asthma; Chronic pain; Cirrhosis; Depression; Diabetes - NIDDM; Hypertension; tw2 - PSHx: 14:16 Cholecystectomy; left shoulder; Hysterectomy; Hernia repair; tw2 - Immunization history:: Adult Immunizations. - Social history:: Smoking status: . - Ebola Screening: : Patient denies travel to an Ebola-affected area in the 21 days before illness onset. - Family history:: not pertinent. - Hospitalizations: : No recent hospitalization is reported. ROS: 14:42 Constitutional: +fever and chills rn 14:44 Eyes: Negative for injury, pain, redness, and discharge, Neck: Negative for injury, and rn swelling, Cardiovascular: Negative for palpitations, and edema, Respiratory: + sob Abdomen/GI: + nausea MS/Extremity: Negative for injury and deformity, Skin: Negative for injury, rash, and discoloration, Neuro: + generalized weakness Exam: 14:44 Constitutional: This is a well developed, well nourished patient who is awake, alert, rn + mild tachypnea Head/Face: Normocephalic, atraumatic. Eyes: Pupils equal round and reactive to light, extra-ocular motions intact. Lids and lashes normal. Conjunctiva and sclera are non-icteric and not injected. Cornea within normal limits. Periorbital areas with no swelling, redness, or edema. ENT: dry MM, no stridor Neck: + mild cervical LAD, no masses, no crepitus Cardiovascular: regular, tachycardic, no murmur Respiratory: + moderate tachypnea with diffuse wheezing, no retractions, + speaking 3-4 word sentences Abdomen/GI: soft, non-tender, + large right sided ventral hernia, no rebound MS/ Extremity: Pulses equal, no cyanosis. Neurovascular intact. Full, normal range of motion. Equal circumference. Neuro: Awake and alert, GCS 15, oriented to person, place, time, and situation. Cranial nerves II-XII grossly intact. Motor strength 5/5 in all extremities. Sensory grossly intact. Vital Signs: 14:13 BP 117 / 81; Pulse 84; Resp 22; Temp 100(O); Pulse Ox 97% on R/A; Pain 10/10; tw2 14:59 BP 154 / 92; Pulse 126; Resp 28; Pulse Ox 100% on Nebulizer Mask; tw2 15:09 Pulse 138; tw2 15:30 Temp 102.2(O); mh5 15:37 BP 138 / 98; Pulse 144; Temp 102.2(O); tw2 16:07 BP 153 / 89; Pulse 133; Resp 30; Pulse Ox 96% on R/A; tw2 17:18 BP 113 / 72; Pulse 112; Resp 20 S; Temp 100.6(TE); Pulse Ox 96% on R/A; iw 17:57 Temp 100.1(O); iw 18:17 BP 118 / 74; Pulse 107; Resp 23; Temp 100.1(O); Pulse Ox 97% on R/A; tw2 19:30 BP 118 / 71; Pulse 102; Resp 23; Temp 98.1(O); Pulse Ox 96% on R/A; cc3 14:59 provider notified of elevated HR tw2 15:09 provider notified. iv fluids just started, will continue to monitor tw2 15:37 provider notified of elevation of HR and temperature, tw2 MDM: 14:16 Patient medically screened. rn 17:36 Differential Diagnosis hyperglycemia, dehydration, UTI, pneumonia, asthma. Data rn reviewed: vital signs, nurses notes, lab test result(s), EKG, radiologic studies, CT scan, plain films, and as a result, I will admit patient. Counseling: I had a detailed discussion with the patient and/or guardian regarding: the historical points, exam findings, and any diagnostic results supporting the discharge/admit diagnosis, lab results, radiology results, the need for further work-up and treatment in the hospital. Response to treatment: the patient's symptoms have mildly improved after treatment, and as a result, I will admit patient. Admission orders: after a detailed discussion of the patient's condition and case, the admit orders are written by me. ED course: Pt doesn't feel well, only + finding is UTI, no acute findings in cxr or ct abdomen, HR improved from 140s with fluids and motrin, partially temperature related, and responded well to 1 L bolus. Admitted to Dr. Donovan for UTI, dehydration. . 01/07 14:23 Order name: Blood Culture Adult (2) rn 01/07 14:23 Order name: BMP; Complete Time: 16:21 rn 01/07 14:23 Order name: CBC with Diff; Complete Time: 17:32 rn 01/07 14:23 Order name: Ckmb; Complete Time: 16:21 rn 01/07 14:23 Order name: CPK; Complete Time: 16:21 rn 01/07 14:23 Order name: Hepatic Function; Complete Time: 16:21 rn 01/07 14:23 Order name: Lipase; Complete Time: 16:21 rn 01/07 14:23 Order name: Magnesium; Complete Time: 16:21 rn 01/07 14:23 Order name: NT PRO-BNP; Complete Time: 16:21 rn 01/07 14:23 Order name: Troponin (emerg Dept Use Only); Complete Time: 16:21 rn 01/07 14:23 Order name: Procalcitonin; Complete Time: 16:42 rn 01/07 14:23 Order name: Flu; Complete Time: 15:44 rn 01/07 14:44 Order name: Strep; Complete Time: 15:44 rn 01/07 15:30 Order name: Throat Culture EDFL 01/07 16:43 Order name: Urine Microscopic Only; Complete Time: 17:31 rn 01/07 16:43 Order name: Urine Culture rn 01/07 17:10 Order name: Urine Dipstick--Ancillary (enter results); Complete Time: 17:31 bd 01/07 17:31 Order name: Manual Differential; Complete Time: 17:32 EDMS 01/07 17:43 Order name: Lactate EDMS 01/07 17:43 Order name: Urinalysis EDMS 01/07 17:43 Order name: CBC with Automated Diff EDMS 01/07 17:43 Order name: CBC with Automated Diff EDMS 01/07 17:43 Order name: CBC with Automated Diff EDMS 01/07 17:43 Order name: CBC with Automated Diff EDMS 01/07 17:43 Order name: Comprehensive Metabolic Panel EDMS 01/07 17:43 Order name: Comprehensive Metabolic Panel EDMS 01/07 17:43 Order name: Comprehensive Metabolic Panel EDMS 01/07 17:43 Order name: Comprehensive Metabolic Panel EDMS 01/07 17:43 Order name: Magnesium EDMS 01/07 17:43 Order name: Magnesium EDMS 01/07 14:23 Order name: XRAY CXR (1 view); Complete Time: 15:05 rn 01/07 14:23 Order name: EKG; Complete Time: 14:23 rn 01/07 14:23 Order name: Cardiac monitoring; Complete Time: 14:59 rn 01/07 14:23 Order name: EKG - Nurse/Tech; Complete Time: 14:59 rn 01/07 14:23 Order name: IV Saline Lock; Complete Time: 14:59 rn 01/07 14:23 Order name: Labs collected and sent; Complete Time: 14:59 rn 01/07 14:23 Order name: O2 Per Protocol; Complete Time: 14:59 rn 01/07 14:23 Order name: O2 Sat Monitoring; Complete Time: 14:59 rn 01/07 15:11 Order name: Labs - recollect needed; Complete Time: 15:43 bd 01/07 15:15 Order name: CT Abd/Pelvis - W/Contrast; Complete Time: 16:59 rn 01/07 16:43 Order name: Urine Dipstick-Ancillary (obtain specimen); Complete Time: 17:07 rn 01/07 17:43 Order name: Respiratory Therapy Consult EDFL 01/07 17:43 Order name: Consistent Carb (ADA) 2000 Mikal EDMS 01/07 17:43 Order name: Magnesium EDMS 01/07 17:43 Order name: Magnesium EDFL 01/07 17:43 Order name: Blood Culture EDMS 01/07 17:43 Order name: Patient Safety Orders EDMS 01/07 17:48 Order name: EKG Electrocardiogram EDMS 01/07 18:14 Order name: Glucose, Ancillary Testing EDMS 01/07 18:14 Order name: Glucose, Ancillary Testing EDMS Administered Medications: 14:48 Drug: Zofran 2 mg Route: IVP; Site: left antecubital; tw2 15:49 Follow up: Response: No adverse reaction; Nausea is decreased tw2 14:55 Drug: SOLU-Medrol 125 mg Route: IVP; Site: left antecubital; tw2 15:49 Follow up: Response: No adverse reaction tw2 14:55 Drug: Xopenex (3) 1.25 mg Route: Inhalation; tw2 15:06 Drug: NS 0.9% 500 ml Route: IV; Rate: bolus; Site: left antecubital; tw2 16:00 Follow up: Response: No adverse reaction; IV Status: Completed infusion; IV Intake: iw 500ml 15:42 Drug: Motrin 800 mg Route: PO; tw2 17:57 Follow up: Temp 100.1 Oral; Response: No adverse reaction; Temperature is decreased iw 15:53 Drug: NS 0.9% 500 ml Route: IV; Rate: bolus; Site: left antecubital; tw2 17:30 Follow up: Response: No adverse reaction; IV Status: Completed infusion; IV Intake: tw2 500ml 17:29 Drug: Rocephin - (cefTRIAXone) 1 grams {Note: given over 5 min, IVP.} Route: IVPB; iw Infused Over: 30 mins; Site: left antecubital; 17:35 Follow up: Response: No adverse reaction; No adverse reaction, IVP available on from tw2 pharmacy.; IV Status: Completed infusion Point of Care Testing: Blood Glucose: 14:54 Blood Glucose: 231 mg/dL; tw2 18:11 Blood Glucose: 251 mg/dL; mh5 14:54 per Moy Funk tw2 Ranges: Critical Glucose Levels:Adult <50 mg/dl or >400 mg/dl <40 mg/dl or >180 mg/dl Disposition: 01/07/18 17:38 Hospitalization ordered by Mike Donovan for Inpatient Admission. Preliminary diagnosis are Urinary tract infection, site not specified, Hyperglycemia, unspecified, Dehydration. - Bed requested for Telemetry/MedSurg (Inpatient). - Status is Inpatient Admission. cc3 - Condition is Stable. - Problem is new. - Symptoms have improved. UTI on Admission? Yes Signatures: Dispatcher [employer] EDMS Andria Tamayo Irene, RN RN Derek Hinton MD MD rn Wise, Tara, RN RN 2 Lindy Dillard cc3 Corrections: (The following items were deleted from the chart) 18:06 17:38 Hospitalization Ordered by Mike Donovan DO for Inpatient Admission. Preliminary bd diagnosis is Urinary tract infection, site not specified; Hyperglycemia, unspecified; Dehydration. Bed requested for Telemetry/MedSurg (Inpatient). Status is Inpatient Admission. Condition is Stable. Problem is new. Symptoms have improved. UTI on Admission? Yes. rn 20:06 18:06 01/07/2018 17:38 Hospitalization Ordered by Mike Donovan DO for Inpatient cc3 Admission. Preliminary diagnosis is Urinary tract infection, site not specified; Hyperglycemia, unspecified; Dehydration. Bed requested for Telemetry/MedSurg (Inpatient). Status is Inpatient Admission. Condition is Stable. Problem is new. Symptoms have improved. UTI on Admission? Yes. bd
--- NOTE | 2018-01-07 17:39 | ER ---
Nurse's Notes [facility] Name: Judi Cao Age: 67 yrs Sex: Female : 1950 Arrival Date: 01/07/2018 Time: 14:11 Bed 15 Private MD: Diagnosis: Urinary tract infection, site not specified;Hyperglycemia, unspecified;Dehydration Presentation: 01/07 14:06 Presenting complaint: EMS states: pt was at hair salon, started sudden onset chills, no tw2 fever, her blood sugar was 237, she didn't take her metformin today and hasnt been checking her sugars but she did eat today, NKDA, Hx: DM, Htn, Cirrhosis c/o b/l leg pain. Transition of care: patient was not received from another setting of care. Onset of symptoms was January 07, 2018. Risk Assessment: Do you want to hurt yourself or someone else? Patient reports no desire to harm self or others. Initial Sepsis Screen: Does the patient meet any 2 criteria? No. Patient's initial sepsis screen is negative. Does the patient have a suspected source of infection? No. Patient's initial sepsis screen is negative. Care prior to arrival: Glucose check: 237. 14:06 Method Of Arrival: EMS: [facility] tw2 14:06 Acuity: GEORGE 3 tw2 Historical: - Allergies: 14:18 No Known Allergies; tw2 - Home Meds: 14:16 acetaminophen-codeine 300-30 mg Oral tab as needed [Active]; Advair Diskus 250-50 tw2 mcg/dose Inhl dsdv 1 puff 2 times per day [Active]; Lyrica 75 mg Oral 2 times per day [Active]; metformin 1,000 mg Oral tab 1 tab 2 times per day [Active]; Symbicort 80-4.5 mcg/actuation inhalation HFAA 2 puffs 2 times per day [Active]; Lisinopril Oral [Active]; - PMHx: 14:16 Anxiety; Asthma; Chronic pain; Cirrhosis; Depression; Diabetes - NIDDM; Hypertension; tw2 - PSHx: 14:16 Cholecystectomy; left shoulder; Hysterectomy; Hernia repair; tw2 - Immunization history:: Adult Immunizations. - Social history:: Smoking status: . - Ebola Screening: : Patient denies travel to an Ebola-affected area in the 21 days before illness onset. - Family history:: not pertinent. - Hospitalizations: : No recent hospitalization is reported. Screenin:18 Abuse screen: Denies threats or abuse. Nutritional screening: No deficits noted. tw2 Tuberculosis screening: No symptoms or risk factors identified. Fall Risk None identified. Assessment: 14:18 General: Appears in no apparent distress. Behavior is appropriate for age. Pain: tw2 Complains of pain in right leg and left leg. Neuro: Level of Consciousness is awake, alert, obeys commands, Oriented to person, place, time, situation. Cardiovascular: Denies chest pain, shortness of breath, Heart tones S1 S2 Capillary refill < 3 seconds Patient's skin is warm and dry. Respiratory: Airway is patent Respiratory effort is even, unlabored, Respiratory pattern is tachypnea. GI: Abdomen is round distended, Bowel sounds present X 4 quads. : No signs and/or symptoms were reported regarding the genitourinary system. EENT: No deficits noted. Derm: Skin is clammy. Musculoskeletal: Range of motion: intact in all extremities, limited in all extremities. 14:48 Reassessment: pt started vomiting at this time, she says "it taste like pope[place] tw2 chicken". 16:08 Reassessment: Patient and/or family updated on plan of care and expected duration. Pain tw2 level reassessed. pt c/o headache and chills, pt has no blanket at this time, cool washcloth applied to forehead, pt denies nauseousness at this time. 17:21 Reassessment: Patient appears in no apparent distress at this time. Patient and/or iw family updated on plan of care and expected duration. Pain level reassessed. Patient is alert, oriented x 3, equal unlabored respirations, skin warm/dry/pink. Dr. Donovan at bedside to assess pt and update pt on POC. 17:40 Reassessment: Patient appears in no apparent distress at this time. pt assisted to iw bedside commode, VSS. 19:15 Reassessment: Patient appears in no apparent distress at this time. Patient and/or cc3 family updated on plan of care and expected duration. Pain level reassessed. Patient is alert, oriented x 3, equal unlabored respirations, skin warm/dry/pink. Received patient from morning shift RN Therese as a case of UTI for admission to room 205 after shift change. With IV cannula gauge 20 at the left ACV saline locked. 19:35 Reassessment: Called for report at extension [id number] and as per charge nurse Russell the cc3 nurse who will receive will just call me back. 19:50 Reassessment: Report handed over to GEMINI Hernandez for continuity of care. cc3 20:05 Reassessment: Patient appears in no apparent distress at this time. Patient and/or cc3 family updated on plan of care and expected duration. Pain level reassessed. Patient is alert, oriented x 3, equal unlabored respirations, skin warm/dry/pink. Patient left ER for admission vitally stable by wheelchair escorted by microfilm technician Mat and patient's . Vital Signs: 14:13 BP 117 / 81; Pulse 84; Resp 22; Temp 100(O); Pulse Ox 97% on R/A; Pain 10/10; tw2 14:59 BP 154 / 92; Pulse 126; Resp 28; Pulse Ox 100% on Nebulizer Mask; tw2 15:09 Pulse 138; tw2 15:30 Temp 102.2(O); mh5 15:37 BP 138 / 98; Pulse 144; Temp 102.2(O); tw2 16:07 BP 153 / 89; Pulse 133; Resp 30; Pulse Ox 96% on R/A; tw2 17:18 BP 113 / 72; Pulse 112; Resp 20 S; Temp 100.6(TE); Pulse Ox 96% on R/A; iw 17:57 Temp 100.1(O); iw 18:17 BP 118 / 74; Pulse 107; Resp 23; Temp 100.1(O); Pulse Ox 97% on R/A; tw2 19:30 BP 118 / 71; Pulse 102; Resp 23; Temp 98.1(O); Pulse Ox 96% on R/A; cc3 14:59 provider notified of elevated HR tw2 15:09 provider notified. iv fluids just started, will continue to monitor tw2 15:37 provider notified of elevation of HR and temperature, tw2 ED Course: 14:11 Patient arrived in ED. tw2 14:13 Triage completed. tw2 14:14 Arm band placed on. tw2 14:16 Derek Hinton MD is Attending Physician. rn 14:18 Placed in gown. Bed in low position. Side rails up X2. nurse monitoring on. Pulse ox on. tw2 NIBP on. 14:22 Therese Delacruz, GEMINI is Primary Nurse. tw2 14:43 EKG done, by agriscience technology instructor. reviewed by Derek Hinton MD. 3 14:45 Initial lab(s) drawn, by ri, sent to lab. First set of blood cultures drawn Second set mh5 of blood cultures drawn by ri, Flu and/or RSV swab sent to lab. Strep swab sent to lab. 14:56 XRAY CXR (1 view) In Process Unspecified. EDMS 15:04 Inserted saline lock: 20 gauge in left antecubital area, using aseptic technique. Blood mh5 collected. 15:06 Strep Sent. mh5 15:06 Flu Sent. mh5 15:07 Procalcitonin Sent. mh5 15:07 Blood Culture Adult (2) Sent. mh5 15:07 BMP Sent. 5 15:07 CBC with Diff Sent. mh5 15:07 Ckmb Sent. mh5 15:07 Lipase Sent. mh5 15:08 Magnesium Sent. mh5 15:08 NT PRO-BNP Sent. mh5 15:08 Troponin (emerg Dept Use Only) Sent. mh5 15:08 CPK Sent. mh5 15:08 Hepatic Function Sent. mh5 15:19 REPEAT EKG DONE. sm3 15:30 Radiology exam delayed due to lab results not completed at this time. (BUN/Creatinine). vr 15:42 Lab(s) recollected, by ri, sent to lab. 5 15:52 Radiology exam delayed due to lab results not completed at this time. (BUN/Creatinine). vm2 16:[address] vr 16:37 CT completed. Patient tolerated procedure well. Patient moved back from CT. nj 16:37 CT Abd/Pelvis - W/Contrast In Process Unspecified. EDMS 17:38 Mike Donovan DO is Hospitalizing Provider. rn 18:57 Report given to GEMINI Israel. tw2 19:50 No provider procedures requiring assistance completed. Patient admitted, IV remains in cc3 place. Administered Medications: 14:48 Drug: Zofran 2 mg Route: IVP; Site: left antecubital; tw2 15:49 Follow up: Response: No adverse reaction; Nausea is decreased tw2 14:55 Drug: SOLU-Medrol 125 mg Route: IVP; Site: left antecubital; tw2 15:49 Follow up: Response: No adverse reaction tw2 14:55 Drug: Xopenex (3) 1.25 mg Route: Inhalation; tw2 15:06 Drug: NS 0.9% 500 ml Route: IV; Rate: bolus; Site: left antecubital; tw2 16:00 Follow up: Response: No adverse reaction; IV Status: Completed infusion; IV Intake: iw 500ml 15:42 Drug: Motrin 800 mg Route: PO; tw2 17:57 Follow up: Temp 100.1 Oral; Response: No adverse reaction; Temperature is decreased iw 15:53 Drug: NS 0.9% 500 ml Route: IV; Rate: bolus; Site: left antecubital; tw2 17:30 Follow up: Response: No adverse reaction; IV Status: Completed infusion; IV Intake: tw2 500ml 17:29 Drug: Rocephin - (cefTRIAXone) 1 grams {Note: given over 5 min, IVP.} Route: IVPB; iw Infused Over: 30 mins; Site: left antecubital; 17:35 Follow up: Response: No adverse reaction; No adverse reaction, IVP available on from tw2 pharmacy.; IV Status: Completed infusion Point of Care Testing: Blood Glucose: 14:54 Blood Glucose: 231 mg/dL; tw2 18:11 Blood Glucose: 251 mg/dL; mh5 14:54 per Moy Funk tw2 Ranges: Intake: 16:00 IV: 500ml; Total: 500ml. iw 17:30 IV: 500ml; Total: 1000ml. tw2 Outcome: 17:38 Decision to Hospitalize by Provider. rn 19:50 Admitted to Med/surg accompanied by tech, via stretcher, room 205, with chart, Report cc3 called to GEMINI Hernandez 19:50 Condition: stable 19:50 Instructed on the need for admit, Demonstrated understanding of instructions. 20:06 Patient left the ED. cc3 Signatures: Dispatcher [employer] EDJuli Bah RN RN Derek Hinton MD MD rn Davis, Victoria vr Wise, Tara, RN RN [facility] Yordy Tavarez [facility] Marion Amaral vm2 Gabriella Lagos sm3 Lindy Dillard cc3 Corrections: (The following items were deleted from the chart) 14:54 14:13 BP 117 / 81; Pulse 84bpm; Resp 17bpm; Pulse Ox 97% RA; Temp 100F Oral; Pain tw2 1010; tw2 18:18 18:17 BP 118 / 74; Pulse 107bpm; Resp 23bpm; Pulse Ox 97% RA; tw2 tw2
--- NOTE | 2018-01-07 17:48 | P.HP ---
Certification for Inpatient Patient admitted to: Inpatient With expected LOS: >2 Midnights Patient will require the following post-hospital care: None Practitioner: I am a practitioner with admitting privileges, knowledge of patient current condition, hospital course, and medical plan of care. Services: Services provided to patient in accordance with Admission requirements found in Title 42 Section 412.3 of the Code of Federal Regulations Patient History Date of Service: 01/07/18 Primary Care Provider: Dr. Renteria; -[place], [place] Reason for admission: Fever, chills History of Present Illness: 67-year-old female presented to the emergency room with fever, chills. Patient went to a beauty shop today. She reported increasing fever, chills, headaches and shortness of breath. She did not feel well. She had reported some dysuria and wheezing. She reported a fever as well. Patient came to the ER for further evaluation. In the ER patient evaluated. She was tachycardic with a fever of 103. Patient appeared dehydrated. She was given IV fluids. Patient also received Solu- Medrol as the patient had reported some history of asthma and reported wheezing. On lab white count 10.7, hemoglobin 13.6. Sodium 136, potassium 4.1 , BUN of 20, creatinine 1.0 with a GFR 55. Glucose 212. Pro calcitonin within normal range at 0.32. Urinalysis showed bacteria. Chest x-ray unremarkable. CT of the abdomen showed no acute findings. Right sided abdominal wall muscle atrophy was noted. Flu test negative. Strep test negative. Patient was admitted for further evaluation. When I saw the patient ER, heart rate improved to around 110. She was less afebrile. Patient reported having some dysuria and polyuria. She also reported some mild cough earlier in the week. Patient with history of asthma, diabetes, hypertension, fatty liver. She has a abdominal hernia. She has had multiple abdominal surgeries. She does not drink anymore. She does not smoke. Allergies No Known Allergies Allergy (Uncoded 07/20/16 18:41) Unknown Home medications list reviewed: Yes - Past Medical/Surgical History Diabetic: Yes -: Diabetes mellitus type 2, non-insulin dependent -: Diabetic neuropathy -: Hypertension -: Fatty liver -: Recurrent UTI -: Asthma -: Abdominal hernia with multiple abdominal surgeries -: Multiple abdominal hernia repairs -: Cholecystectomy -: Hysterectomy Psychosocial/ Personal History: Patient has a partner. She has 1 child. - Family History Mother -: Heart disease - Social History Smoking Status: Never smoker Alcohol use: No CD- Drugs: No Caffeine use: Yes Place of Residence: Home Review of Systems General: Fever, Chills, Weakness, Malaise, As per HPI Eyes: Unremarkable ENT: Unremarkable Respiratory: Shortness of Breath, Wheezing, As per HPI Cardiovascular: Light Headedness, As per HPI Gastrointestinal: Abdominal Pain, As per HPI Genitourinary: Dysuria, Frequency, As per HPI Musculoskeletal: As per HPI Integumentary: Unremarkable Neurological: Weakness, As per HPI Lymphatics: Unremarkable Physical Examination - Physical Exam General: Alert, Oriented x3, Cooperative, Mild distress (Mild distress noted.), Other (Patient feels warm to touch) HEENT: Atraumatic, Normocephalic, PERRLA, Other (Dry mucous membranes), EOMI Neck: Supple, No Thyromegaly Respiratory: Clear to auscultation bilaterally, Normal air movement Cardiovascular: Abnormal pulses (Mild sinus tachycardia) Gastrointestinal: Normal bowel sounds, Soft and benign, Non-distended, No masses , No rebound, No guarding, Other (Large abdominal wall hernia to the right side) , Tenderness (Minimal pain to the abdomen.) Musculoskeletal: No contractures, No erythema, No tenderness, No warmth Integumentary: No tenderness/swelling, No erythema, No warmth, No cyanosis Neurological: Normal speech, Normal strength at 5/5 x4 extr, Normal tone, Normal affect Lymphatics: No axilla or inguinal lymphadenopathy - Studies Laboratory Data (last 24 hrs) 01/07/18 15:35: WBC 10.7 D, Hgb 13.6, Hct 39.6, Plt Count 169 D 01/07/18 15:35: Sodium 136, Potassium 4.1, BUN 20 H, Creatinine 1.00, Glucose 212 H, Magnesium 1.9, Total Bilirubin 0.4, AST 264 H D, ALT 124 H D, Alkaline Phosphatase 116, Lipase 203 Microbiology Data (last 24 hrs): 01/07/18 14:30 Nasopharnyx Influenza Type A Antigen Screen - Final 01/07/18 14:30 Nasopharnyx Influenza Type B Antigen Screen - Final 01/07/18 14:55 Throat Group A Streptococcus Rapid Screen - Final Assessment and Plan - Plan Impression: Fever, chills, abdominal pain, tachycardia likely related to UTI with possible sepsis Diabetes mellitus type 2 non-insulin dependent Hypertension Fatty liver Asthma Abdominal hernia with multiple abdominal surgeries Plan: Fever, chills, abdominal pain, tachycardia likely related to UTI with possible sepsis: Will continue with aggressive IV fluid hydration. Will start IV Levaquin. Blood and urine culture obtained. Will monitor for sepsis. Will continue to reassess. Will monitor closely. Diabetes mellitus type 2 non-insulin dependent: Will need to check A1c. Will start Accu-Cheks and continue with sliding scale. Hypertension: Will need to obtain home medication. Will provide medication IV as needed. Fatty liver: CT scan did not show cirrhosis. The liver noted. Patient with elevated liver function. Will get abdominal ultrasound. Will check hepatitis panel. Patient no longer drinks alcohol. Asthma: Will continue with Brovana. Will maintain sats above 90%. Will monitor closely. Abdominal hernia with multiple abdominal surgeries: Overall stable. No significant intra-abdominal abnormality. Hernia noted on CT scan. Patient will need surgery as an outpatient. Discharge Plan: Home Plan to discharge in: Greater than 2 days - Advance Directives Does patient have a Living Will: No Does patient have a Durable POA for Healthcare: No - Code Status/Comfort Care Code Status Assessed: Yes (Patient full code.) Time Spent Managing Pts Care (In Minutes): 55
--- NOTE | 2018-01-07 18:03 | EKG ---
Test Date: 2018-01-07 Test Time: 15:14:14 Irs Agent: HOMERO MEASUREMENT RESULTS: Intervals: Rate: 137 SC: 136 QRSD: 70 QT: 272 QTc: 410 [place]: P: 36 SC: 136 QRS: 45 T: 49 INTERPRETIVE STATEMENTS: Sinus tachycardia Otherwise normal ECG Compared to ECG 01/07/2018 14:34:08 No significant changes Electronically Signed On 01-07-18 18:02:52 ENGRAVINGS POLISHER by Keshawn Arguello
--- NOTE | 2018-01-07 18:04 | EKG ---
Test Date: 2018-01-07 Test Time: 14:34:08 Rehabilitation Services Counselor: HOMERO MEASUREMENT RESULTS: Intervals: Rate: 116 DC: 146 QRSD: 74 QT: 306 QTc: 425 [place]: P: 35 DC: 146 QRS: 43 T: 51 INTERPRETIVE STATEMENTS: Sinus tachycardia Otherwise normal ECG Compared to ECG 08/12/2017 15:15:48 No significant changes Electronically Signed On 01-07-18 18:02:57 HOT [employer]IP MILL INSPECTOR by Keshawn Arguello
[2018-01-07] MEDS ORDERED: NA CHLORIDE 0.9% 1,000 ML IV ONE (21:00)
[2018-01-07] MEDS: Levofloxacin500mg IV 500 MG/100 ML BAG IV SCH (21:02)
[2018-01-07] MEDS: INSULIN -REGULAR HUMAN 50 UNIT/0.5 ML ML SQ SCH (21:03)
[2018-01-07] MEDS: ENOXAPARIN 40 MG/0.4 ML SQ SCH (21:03)
[2018-01-07] MEDS: NA CHLORIDE 0.9% 1,000 ML IV SCH (21:04)
[2018-01-07] MEDS: IPRATROPIUM BROM 0.5MG/2.5ML NEB PRN (21:40)
[2018-01-07] MEDS: ARFORMOTEROL TARTRATE 15 MCG/2 ML VIAL.NEB NEB SCH (21:40)
[2018-01-08] MEDS: NA CHLORIDE 0.9% 1,000 ML IV SCH ×4 (02:00→20:10)
[2018-01-08 05:37] LABS: Absolute Lymphocytes (CBC) 0.5 K/uL (0.7-4.9); Absolute Monocytes 0.5 K/uL (0.1-1.3); Absolute Neutrophil 6.2 K/uL (1.8-8.0); Basophils % 0.2 % (0-1.3); Eosinophils % 0.1 % (0-4.4); Hematocrit 35.2 % (36.0-45.0); Lymphocytes % 6.4 % (15.3-44.8); MCH 31.2 pg (27.0-35.0); MCV 93.9 fL (80-100); Monocytes % 6.4 % (3.3-12.3); RBC Red Blood Cell Count 3.74 M/uL (3.86-4.86)
--- NOTE | 2018-01-08 05:42 | P.INFCA ---
Sepsis Focused Assessment - Sepsis Screen Result Severe Sepsis: Negative Septic Shock: Positive - Evaluation Current stage of sepsis: Severe sepsis - Vital Signs Reviewed: Yes Temperature: 97.5 F Heart rate: 95 Blood Pressure: 105/49 Respiratory Rate: 18 O2 Sat by Pulse Oximetry: 97 - Examination Date exam was performed: 01/07/18 Time exam was performed: 23:43 Heart: Regular rate/rhythm Lungs: Clear bilaterally Peripheral pulses: 2+ Slightly diminished Peripheral pulse location: Radial Capillary refill: <2 Seconds Skin examination: Normal turgor Comments: Patient is doing well; work-up for source of lactate pending-Type A vs. B?
[2018-01-08 06:01] LABS: Albumin 3.3 g/dL (3.4-5.0); Bilirubin Total 0.4 mg/dL (0.2-1.0); Magnesium 2.4 mg/dL (1.8-2.4); Potassium 4.4 mmol/L (3.5-5.1)
[2018-01-08] MEDS: ACETAMINOPHEN 500 MG TAB PO PRN ×3 (06:31→20:12)
[2018-01-08] MEDS: INSULIN -REGULAR HUMAN 50 UNIT/0.5 ML ML SQ SCH ×4 (07:30→21:52)
[2018-01-08] MEDS ORDERED: PNEUMOCOCCAL VACCINE 0.5 ML IMVAC ONE (08:00)
[2018-01-08] MEDS ORDERED: INFLUENZA VACCINE (for 3y+) 0.5 ML DOSE IMVAC ONE (08:00)
--- NOTE | 2018-01-08 09:34 | RAD REPORT ---
EXAM DESCRIPTION: US - Abdomen Exam Complete - 01/08/2018 8:13 am CLINICAL HISTORY: Abdominal pain COMPARISON: none FINDINGS: The liver has an increased echotexture. The gallbladder has been removed. Biliary tree is normal caliber. The pancreas is normal in size and echotexture The right kidney measures 11 centimeters with a normal echotexture. The left kidney measures 11 centimeters with a normal echotexture. The spleen measures 9 centimeters. The abdominal aorta and inferior vena cava appear unremarkable IMPRESSION: Increased hepatic echotexture consistent with fatty infiltration
[2018-01-08] MEDS: PANTOPRAZOLE 40MG TABLET PO SCH (09:59)
[2018-01-08] MEDS: ENOXAPARIN 40 MG/0.4 ML SQ SCH (09:59)
[2018-01-08] MEDS: TRAMADOL HCL 50 MG TAB PO PRN ×2 (10:07→20:12)
--- NOTE | 2018-01-08 10:13 | P.PN ---
Subjective Date of Service: 01/08/18 Primary Care Provider: Dr. Renteria; [facility], [place] Chief Complaint: Fever, chills Subjective: Other (Patient doing better. Still with fatigue.) Physical Examination - Vital Signs Temperature: 97.4 F Blood Pressure: 133/68 Pulse: 85 Respirations: 20 Pulse Ox (%): 95 - Physical Exam General: Alert, In no apparent distress, Oriented x3, Cooperative HEENT: Atraumatic Neck: Supple Respiratory: Clear to auscultation bilaterally, Normal air movement Cardiovascular: Normal pulses, Regular rate/rhythm Gastrointestinal: Normal bowel sounds, Soft and benign, Non-distended, No tenderness, No masses, No rebound, No guarding, Other (Large scar to the right quadrant area) Musculoskeletal: No erythema, No tenderness, No warmth Integumentary: No erythema, No warmth, No cyanosis Neurological: Normal speech, Normal strength at 5/5 x4 extr, Normal tone, Normal affect - Studies Laboratory Data (last 24 hrs) 01/07/18 15:35: WBC 10.7 D, Hgb 13.6, Hct 39.6, Plt Count 169 D 01/07/18 15:35: Sodium 136, Potassium 4.1, BUN 20 H, Creatinine 1.00, Glucose 212 H, Magnesium 1.9, Total Bilirubin 0.4, AST 264 H D, ALT 124 H D, Alkaline Phosphatase 116, Lipase 203 Microbiology Data (last 24 hrs): 01/07/18 14:30 Nasopharnyx Influenza Type A Antigen Screen - Final 01/07/18 14:30 Nasopharnyx Influenza Type B Antigen Screen - Final 01/07/18 14:55 Throat Group A Streptococcus Rapid Screen - Final Medications List Reviewed: Yes Assessment & Plan Discharge Plan: Home Plan to discharge in: 72 Hours Physician Review Additional Text: Impression: Fever, chills, abdominal pain, tachycardia likely related to UTI with severe sepsis Diabetes mellitus type 2 non-insulin dependent Hypertension Fatty liver Asthma Right sided abdominal wall atrophy with protrusion of right lateral abdomen and contents: Obesity, BMI 35.4 Plan: Fever, chills, abdominal pain, tachycardia likely related to UTI with severe sepsis: Will continue with aggressive IV fluid hydration. Will continue with IV Levaquin. Blood and urine culture pending. Abdominal ultrasound shows fatty liver. No cirrhosis noted. Will have physical therapy ambulate. Will continue monitor closely. Blood pressure improved. Diabetes mellitus type 2 non-insulin dependent, on controlled, A1c 8.4: Will continue with sliding scale. Diabetes uncontrolled. Patient will need better control of her diabetes. Hypertension: Will will obtain and verify home medication and restart. Will provide medication IV as needed. Elevated liver function with Fatty liver: CT scan did not show cirrhosis. Fatty liver noted. Abdominal sound shows fatty liver as well. No cirrhosis identified. Liver function tests improved. Will send for hepatitis. Will consult hepatology/GI to further assess. Patient with history of alcohol use in the past. Asthma: Will continue with Brovana and breathing treatments. Overall stable. Will maintain sats above 90%. Will monitor closely. Right sided abdominal wall atrophy with protrusion of right lateral abdomen and contents: No intra-abdominal acute abnormality. This is likely from multiple surgeries in the past. Thinning and convex bulging of the abdominal wall fascia noted. No large or measurable hernia defect noted. No heavy lifting, pushing or pulling recommended at this time. Obesity, BMI 35.4: Will continue with lifestyle modification education. Time Spent Managing Pts Care (In Minutes): 55
[2018-01-08] MEDS ORDERED: D50W 25 GM/50 ML SYRINGE IV PRN (10:14)
[2018-01-08] MEDS ORDERED: GLUCAGON 1 MG/VIAL IM PRN (10:14)
[2018-01-08] MEDS: ARFORMOTEROL TARTRATE 15 MCG/2 ML VIAL.NEB NEB SCH ×2 (10:18→19:25)
[2018-01-08] MEDS: INSULIN GLARGINE 100 UNITS/ML SQ SCH (10:30)
[2018-01-08] MEDS ORDERED: NA CHLORIDE 0.9% 1,000 ML IV SCH (11:00)
[2018-01-08] MEDS ORDERED: FENTANYL CITR 100 MCG/2 ML IV PRN (14:08)
--- NOTE | 2018-01-08 16:48 | RAD REPORT ---
EXAM DESCRIPTION: [place] Single View01/08/2018 4:42 pm CLINICAL HISTORY: Fever COMPARISON: January 07 FINDINGS: Patient is in a poor degree of inspiration. The lungs appear clear of acute infiltrate. The heart is borderline enlarged IMPRESSION: No acute abnormalities displayed
[2018-01-08] MEDS: Levofloxacin500mg IV 500 MG/100 ML BAG IV SCH (17:19)
[2018-01-08] MEDS: HYDROCODONE/APAP 7.5/325 MG TAB PO PRN (17:19)
[2018-01-08] MEDS ORDERED: METFORMIN ER 500 MG TAB PO SCH (21:00)
[2018-01-09] MEDS: NA CHLORIDE 0.9% 1,000 ML IV SCH ×3 (04:19→22:21)
[2018-01-09] MEDS: ONDANSETRON 4 MG/2 ML VIAL IV PRN ×2 (04:20→17:02)
[2018-01-09] MEDS: ACETAMINOPHEN 500 MG TAB PO PRN ×2 (04:22→12:57)
[2018-01-09] MEDS: HYDROCODONE/APAP 7.5/325 MG TAB PO PRN ×2 (04:22→12:57)
[2018-01-09 05:58] LABS: Absolute Monocytes 0.5 K/uL (0.1-1.3); Absolute Neutrophil 4.3 K/uL (1.8-8.0); Basophils % 0.7 % (0-1.3); Eosinophils % 5.6 % (0-4.4); Hematocrit 35.4 % (36.0-45.0); Lymphocytes % 16.5 % (15.3-44.8); MCH 30.7 pg (27.0-35.0); MCV 91.8 fL (80-100); MPV 10.1 fL (7.6-11.3); Monocytes % 8.3 % (3.3-12.3); RBC Red Blood Cell Count 3.85 M/uL (3.86-4.86)
[2018-01-09 06:23] LABS: Bilirubin Total 1.2 mg/dL (0.2-1.0); Magnesium 1.7 mg/dL (1.8-2.4); Potassium 3.8 mmol/L (3.5-5.1); Protein, Total 6.5 g/dL (6.4-8.2)
[2018-01-09 06:53] LABS: Blood Morphology Comment NOT SEEN (NOT SEEN); Platelet Estimate ADEQ; Urine White Blood Cell Casts OK
[2018-01-09] MEDS: ARFORMOTEROL TARTRATE 15 MCG/2 ML VIAL.NEB NEB SCH ×2 (07:19→20:48)
[2018-01-09] MEDS: PANTOPRAZOLE 40MG TABLET PO SCH (07:30)
[2018-01-09] MEDS: INSULIN -REGULAR HUMAN 50 UNIT/0.5 ML ML SQ SCH ×4 (07:30→22:20)
[2018-01-09] MEDS ORDERED: MAGNESIUM SULFATE 1 gm IVPB 1 GM/100 ML BAG IV ONE (09:00)
[2018-01-09] MEDS: LISINOPRIL 20 MG TAB PO SCH (09:00)
[2018-01-09] MEDS ORDERED: POTASSIUM 25 MEQ EFFERV TAB PO ONE (09:00)
[2018-01-09] MEDS: ENOXAPARIN 40 MG/0.4 ML SQ SCH (09:54)
[2018-01-09] MEDS: INSULIN GLARGINE 100 UNITS/ML SQ SCH (09:55)
--- NOTE | 2018-01-09 11:47 | ECHO ---
HEIGHT: 4 ft 11 in WEIGHT: 175 lb 0 oz DATE OF STUDY: 01/09/[address]: Mike Donovan DO 2-DIMENSIONAL: YES M.MODE: YES DOPPLER: YES COLOR FLOW: YES TDS: NO PORTABLE: NO DEFINITY: NO BUBBLE STUDY: NO DIAGNOSIS: HYPERTENSION CARDIAC HISTORY: CATHERIZATION: NO SURGERY: NO PROSTHETIC VALVE: NO PACEMAKER: NO MEASUREMENTS (cm) DIASTOLIC (NORMALS) SYSTOLIC (NORMALS) IVSd 1.0 (0.6-1.2) LA Diam (1.9-4.0) LVEF 72% LVIDd 3.9 (3.5-5.7) LVIDs 2.3 (2.0-3.5) %FS 40% LVPWd 1.1 (0.6-1.2) Ao Diam 2.6 (2.0-3.7) 2 DIMENSIONAL ASSESSMENT: RIGHT ATRIUM: NORMAL LEFT ATRIUM: NORMAL RIGHT VENTRICLE: NORMAL LEFT VENTRICLE: NORMAL TRICUSPID VALVE: NORMAL MITRAL VALVE: NORMAL PULMONIC VALVE: NORMAL AORTIC VALVE: NORMAL PERICARDIAL EFFUSION: NONE AORTIC ROOT: NORMAL LEFT VENTRICULAR WALL MOTION: NORMAL. DOPPLER/COLOR FLOW: NORMAL. COMMENTS: NORMAL 2D ECHO WITH DOPPLER. NO WALL MOTION ABNORMALITY. NO VEGETATION. TECHNOLOGIST: ROSSY CAO
--- NOTE | 2018-01-09 13:42 | P.PN ---
Subjective Date of Service: 01/09/18 Primary Care Provider: Dr. Renteria; [facility], [place] Chief Complaint: Fever, chills Subjective: Other (Patient slightly improved. Patient still with fever. No abdominal pain noted. GI reports patient has been taking excessive amounts of Tylenol at home) Physical Examination - Vital Signs Temperature: 97.3 F Blood Pressure: 112/57 Pulse: 93 Respirations: 18 Pulse Ox (%): 95 - Physical Exam General: Alert, In no apparent distress, Oriented x3, Cooperative HEENT: Atraumatic Neck: Supple Respiratory: Clear to auscultation bilaterally, Normal air movement Cardiovascular: Normal pulses, Regular rate/rhythm Gastrointestinal: Normal bowel sounds, Soft and benign, Non-distended, No tenderness, No masses, No rebound, No guarding Musculoskeletal: No erythema, No tenderness, No warmth Integumentary: No tenderness/swelling, No erythema, No warmth, No cyanosis Neurological: Normal speech, Normal strength at 5/5 x4 extr, Normal tone, Normal affect - Studies Microbiology Data (last 24 hrs): 01/07/18 17:00 Catheterized Urine [place] Count - Final >100,000 CFU/ML. 01/07/18 17:00 Catheterized Urine - Final Escherichia Coli 01/07/18 14:55 Throat Culture & Sensitivity - Final Medications List Reviewed: Yes Assessment & Plan Discharge Plan: Home Plan to discharge in: Greater than 2 days Physician Review Additional Text: Impression: Fever, chills, abdominal pain, tachycardia likely related to UTI with severe sepsis Elevated liver function with hyperbilirubinemia possible hepatitis or Tylenol overdose with noted fatty liver Diabetes mellitus type 2 non-insulin dependent Hypertension Asthma Right sided abdominal wall atrophy with protrusion of right lateral abdomen and contents: Obesity, BMI 35.4 Plan: Fever, chills, abdominal pain, tachycardia secondary to UTI with urine culture positive for E coli with severe sepsis: Will continue with IV fluids. Antibiotics changed to oral Levaquin. Encourage ambulation. Elevated liver function with hyperbilirubinemia possible hepatitis or Tylenol overdose with noted fatty liver: GI reports patient has been taking excessive amounts of Tylenol at home. Will discontinue Tylenol/Alsen at this time. Will check Tylenol level. Will start Mucomyst. CT scan and abdominal ultrasound unremarkable except for fatty liver. Hepatitis panel pending. Diabetes mellitus type 2 non-insulin dependent, on controlled, A1c 8.4: Will continue with sliding scale. Diabetes uncontrolled. Patient will need better control of her diabetes. Hypertension: Will continue with lisinopril 20 mg daily, will monitor and adjust appropriately. Asthma: Will continue with Brovana and breathing treatments. Overall stable. Will maintain sats above 90%. Will monitor closely. Right sided abdominal wall atrophy with protrusion of right lateral abdomen and contents: No intra-abdominal acute abnormality. This is likely from multiple surgeries in the past. Thinning and convex bulging of the abdominal wall fascia noted. No large or measurable hernia defect noted. No heavy lifting, pushing or pulling recommended at this time. Obesity, BMI 35.4: Will continue with lifestyle modification education. Time Spent Managing Pts Care (In Minutes): 55
[2018-01-09] MEDS ORDERED: D5W IV ONE (14:00)
[2018-01-09] MEDS ORDERED: ACETYLCYSTEINE IV ONE (14:00)
--- NOTE | 2018-01-09 14:39 | RAD REPORT ---
EXAM DESCRIPTION: [id number]/8/2018 2:12 pm CLINICAL HISTORY: Abdominal pain COMPARISON: January 07 1018 TECHNIQUE: Magnetic resonance cholangiogram was performed. 3D MIPS reconstruction performed FINDINGS: The gallbladder has been removed. The biliary tree caliber is within normal limits without visualization of a filling defect. The pancreatic duct appears normal IMPRESSION: Cholecystectomy Unremarkable exam A stone within the common bile duct is not seen
[2018-01-09 15:48] LABS: Protime INR 1.1
[2018-01-09] MEDS: CETIRIZINE HCL 5 MG TABLET PO SCH (17:10)
[2018-01-09] MEDS ORDERED: ACETYLCYSTEINE 8,000 MG in D5W 1,000 ML IV ONE (19:00)
[2018-01-09] MEDS ORDERED: KETOROLAC 30 MG/ML INJ IV ONE (21:42)
[2018-01-09] MEDS ORDERED: IBUPROFEN 200 MG TAB PO PRN (21:43)
[2018-01-10] MEDS: TRAMADOL HCL 50 MG TAB PO PRN (05:11)
[2018-01-10 06:11] LABS: Absolute Lymphocytes (CBC) 1.7 K/uL (0.7-4.9); Absolute Monocytes 0.6 K/uL (0.1-1.3); Absolute Neutrophil 4.5 K/uL (1.8-8.0); Basophils % 0.5 % (0-1.3); Hematocrit 36.4 % (36.0-45.0); MCH 31.4 pg (27.0-35.0); MCV 91.7 fL (80-100); MPV 10.5 fL (7.6-11.3); RBC Red Blood Cell Count 3.96 M/uL (3.86-4.86)
[2018-01-10 06:29] LABS: Protime INR 1.08
[2018-01-10 06:32] LABS: Albumin 2.9 g/dL (3.4-5.0); Magnesium 2.3 mg/dL (1.8-2.4); Potassium 3.4 mmol/L (3.5-5.1); Protein, Total 6.7 g/dL (6.4-8.2)
[2018-01-10] MEDS: NA CHLORIDE 0.9% 1,000 ML IV SCH ×4 (07:00→18:42)
[2018-01-10] MEDS ORDERED: NA CHLORIDE 0.9% 1,000 ML IV ONE (07:23)
[2018-01-10] MEDS: LISINOPRIL 20 MG TAB PO SCH (08:03)
[2018-01-10] MEDS: CETIRIZINE HCL 5 MG TABLET PO SCH (08:16)
[2018-01-10] MEDS: INSULIN -REGULAR HUMAN 50 UNIT/0.5 ML ML SQ SCH ×4 (08:16→21:00)
[2018-01-10] MEDS: PANTOPRAZOLE 40MG TABLET PO SCH (08:17)
[2018-01-10] MEDS: ENOXAPARIN 40 MG/0.4 ML SQ SCH (08:18)
[2018-01-10] MEDS: INSULIN GLARGINE 100 UNITS/ML SQ SCH (08:18)
[2018-01-10] MEDS: ARFORMOTEROL TARTRATE 15 MCG/2 ML VIAL.NEB NEB SCH ×2 (08:50→19:45)
[2018-01-10 08:52] LABS: Rheumatoid Factor NEG (NEG)
[2018-01-10] MEDS ORDERED: POTASSIUM 25 MEQ EFFERV TAB PO ONE (09:00)
[2018-01-10] MEDS ORDERED: levoFLOXacin 500 MG TAB PO SCH (09:00)
--- NOTE | 2018-01-10 10:52 | P.PN ---
Subjective Date of Service: 01/10/18 Primary Care Provider: Dr. Renteria; [facility], [place] Chief Complaint: Fever, chills Subjective: Other ( was able to bring all meds from home. She is taking multiple meds for pain including: Advil, Meloxicam, Doans OTC, Neurontin and possible Tylenol. She also take fenofibrate for Hyperlipidemia. And Buspar and Celexa for Depression/Anxiety. She is taking Metformin and Gliperide for DM. Very poor starting. Patient with mild fever last night. Appears stable but with mild dehydration due to fever) Physical Examination - Vital Signs Temperature: 99 F Blood Pressure: 105/59 Pulse: 104 Respirations: 16 Pulse Ox (%): 94 - Physical Exam General: Alert, In no apparent distress, Oriented x3, Cooperative HEENT: Atraumatic Neck: Supple Respiratory: Clear to auscultation bilaterally, Normal air movement Cardiovascular: Normal pulses, Regular rate/rhythm Gastrointestinal: Normal bowel sounds, Soft and benign, Non-distended, No masses , No rebound, No guarding, Tenderness (Mild pain to the right upper quadrant region) Musculoskeletal: No erythema, No tenderness, No warmth Integumentary: No tenderness/swelling, No erythema, No warmth, No cyanosis Neurological: Normal speech, Normal strength at 5/5 x4 extr, Normal tone, Normal affect - Studies Microbiology Data (last 24 hrs): 01/07/18 17:00 Catheterized Urine [place] Count - Final >100,000 CFU/ML. 01/07/18 17:00 Catheterized Urine - Final Escherichia Coli 01/07/18 14:55 Throat Culture & Sensitivity - Final Medications List Reviewed: Yes Assessment & Plan Discharge Plan: Home Plan to discharge in: Greater than 2 days Physician Review Additional Text: Impression: Fever, chills, abdominal pain, tachycardia secondary to UTI with urine culture positive for E coli with severe sepsis complicated with elevated liver function likely related to acute hepatitis versus medication overdose including multiple medications for pain Elevated liver function with hyperbilirubinemia possible hepatitis or overdose of multiple medications causing acute hepatitis complicated with fatty liver Diabetes mellitus type 2 non-insulin dependent, A1c 8.4, uncontrolled Hypertension Asthma Right sided abdominal wall atrophy with protrusion of right lateral abdomen and contents: Obesity, BMI 35.4 Plan: Fever, chills, abdominal pain, tachycardia secondary to UTI with urine culture positive for E coli with severe sepsis complicated with elevated liver function likely related to acute hepatitis versus medication overdose including multiple medications for pain: Patient given IV fluid bolus today due to tachycardia and low blood pressure. Will continue with aggressive IV fluid hydration. Will continue with Levaquin. brought all medications from home. Medications reviewed from home. Patient takes multiple medications that can cause elevation in liver function tests. This includes Buspar, Celexa, Doans OTC, Fenofibrate, meloxicam, Tylenol, and Metformin. She also had old bottles of amoxicillin. It is unclear what she takes on a regular basis. Patient is a poor historian. She does report that she takes a lot of medications for pain throughout the day. Will check MRI of liver. GI started Mucomyst yesterday. Will continue to monitor liver function closely. Await hepatitis panel. Will recheck pro calcitonin. Will send lab for autoimmune disease of the liver. Will discuss with pharmacy to evaluate all medications and limit or discontinue medications that may affect her her liver. Case discussed at length with patient and . Will continue monitor closely. Will discuss further with GI. Elevated liver function with hyperbilirubinemia possible hepatitis or overdose of multiple medications causing acute hepatitis complicated with fatty liver: Continue as above. Will monitor liver function closely. Pharmacy to monitor and adjust medication as well. Will discuss with GI. Patient on Mucomyst. MRI of liver pending. Diabetes mellitus type 2 non-insulin dependent, uncontrolled, A1c 8.4: Will continue with sliding scale. Will increase Lantus for better diabetic control. Will hold home medications-metformin and glipizide. Hypertension: Will discontinue blood pressure medication due to low blood pressure. Will continue to monitor closely. Asthma: Will continue with Brovana and breathing treatments. Overall stable. Will maintain sats above 90%. Will monitor closely. Right sided abdominal wall atrophy with protrusion of right lateral abdomen and contents: No intra-abdominal acute abnormality. This is likely from multiple surgeries in the past. Thinning and convex bulging of the abdominal wall fascia noted. No large or measurable hernia defect noted. No heavy lifting, pushing or pulling recommended at this time. Obesity, BMI 35.4: Will continue with lifestyle modification education. Time Spent Managing Pts Care (In Minutes): 55
--- NOTE | 2018-01-10 11:42 | RAD REPORT ---
EXAM DESCRIPTION: MRI - Mri Abdomen W/Wo Cont - 01/10/2018 10:46 am CLINICAL HISTORY: Abdominal pain, acute hepatitis ; prior cholecystectomy, appendectomy and hernia r epair. COMPARISON: MRCP January 09, ultrasound January 08, CT study January 07 TECHNIQUE: Multiplanar imaging of the abdomen performed using T1 weighted, T2 weighted, T2 haste fat saturation, T1 inphase/ out of phase imaging and post contrast T1 fat saturation imaging. Axial and coronal 10 minutes and 20 minutes delayed imaging obtained. An milliliter MultiHance contrast volume was utilized. FINDINGS: Fatty liver disease is present. No focal liver parenchymal lesion. No abnormal enhancement of the liver. Smooth capsular contour is noted. Liver is mildly enlarged at 20 centimeter craniocaud al dimension. No splenomegaly or focal splenic finding. No pancreatic acute finding. Gallbladder is absent. No abno rmal biliary tree dilatation identifiable. No adrenal abnormality. Kidneys show normal size and normal signal/enhancement pattern. No perinephri c abnormality. No ascites or lymphadenopathy. No acute bowel finding identifiable. IMPRESSION: Fatty infiltration of the liver is evident. No focal liver lesions seen. As detailed above, no other significant or suspicious findings identified.
[2018-01-10] MEDS ORDERED: TRAMADOL HCL 50 MG TAB PO PRN (12:21)
[2018-01-10] MEDS: LACTULOSE 20 GM/30 ML UCUP PO PRN (13:40)
--- NOTE | 2018-01-10 14:47 | RAD REPORT ---
EXAM DESCRIPTION: CT - Chest Angio - 01/10/2018 2:23 pm CLINICAL HISTORY: Chest pain elevated D-dimer COMPARISON: None. TECHNIQUE: Dynamically enhanced axial 3 mm thick images of the chest were obtained during administra tion of <100> mL Isovue 370 IV contrast. Coronal and oblique reconstruction images were generated and reviewed. Exam utilizes a protocol for optimal evaluation of pulmonary arterial tree. Maximum intensity projections 3D imaging was utilized All CT scans are performed using dose optimization technique as appropriate and may include automated exposure control or mA/KV adjustment according to patient size. FINDINGS: A pulmonary embolus is not seen. A thoracic aortic aneurysm is not noted. Bovine aorta A pleural effusion is not seen. A pericardial effusion is not seen. A lung consolidation is not present. Fatty liver IMPRESSION: Negative for a pulmonary embolism.
[2018-01-10 16:46] LABS: HIV 1/2 Antibody Diff Not indicated.; HIV AG/AB 4TH GEN Non-reactive (Non-reactive)
--- NOTE | 2018-01-10 18:00 | P.PN ---
Subjective Date of Service: 01/10/18 Primary Care Provider: Dr. Renteria; [facility], [place] Chief Complaint: Fever, chills, elevated liver chemistries, acute hepatic failure Subjective: Worsening (Increasing AST/ALT today to 716/520, alk phos 123, Tb 2. She has polypharmacy with Tylenol, psych meds, and Ibuprofen / Froylan's.) Review of Systems 10-point ROS is otherwise unremarkable General: Weakness, Malaise Physical Examination - Vital Signs Temperature: 97.8 F Blood Pressure: 113/62 Pulse: 103 Respirations: 18 Pulse Ox (%): 95 - Physical Exam General: Alert, Oriented x3, Cooperative, Disheveled HEENT: Atraumatic, Normocephalic, PERRLA, EOMI Neck: Supple Respiratory: Normal air movement Cardiovascular: Normal pulses Gastrointestinal: No rebound, No guarding, Tenderness (LUQ/LLQ tenderness, obese ) Neurological: Normal speech, Normal strength at 5/5 x4 extr - Studies Medications List Reviewed: Yes Assessment And Plan - Current Problems (Diagnosis) (1) Abnormal liver enzymes Current Visit: Yes Status: Acute Comment: Worsening despite IV mucomyst therapy. Infectious hepatitis? Has UTI now (2) Acute hepatic failure Current Visit: Yes Status: Acute (3) Obesity (BMI 30-39.9) Current Visit: Yes Status: Acute (4) Hematochezia Current Visit: Yes Status: Acute Comment: Long-term. Will need outpatient colonoscopy. (5) Fatty liver Onset Date: 01/08/18 Current Visit: Yes Status: Acute - Plan REC: 1) complete IV Mucomyst therapy 2) await viral hepatitis panel 3) have pharmacy review all her home medications for potential cause of hepatic failure 4) ensure no biliary disorder 5) treat UTI 6) monitor labs Physician Review Additional Text: Impression: Fever, chills, abdominal pain, tachycardia secondary to UTI with urine culture positive for E coli with severe sepsis complicated with elevated liver function likely related to acute hepatitis versus medication overdose including multiple medications for pain Elevated liver function with hyperbilirubinemia possible hepatitis or overdose of multiple medications causing acute hepatitis complicated with fatty liver Diabetes mellitus type 2 non-insulin dependent, A1c 8.4, uncontrolled Hypertension Asthma Right sided abdominal wall atrophy with protrusion of right lateral abdomen and contents: Obesity, BMI 35.4 Plan: Fever, chills, abdominal pain, tachycardia secondary to UTI with urine culture positive for E coli with severe sepsis complicated with elevated liver function likely related to acute hepatitis versus medication overdose including multiple medications for pain: Patient given IV fluid bolus today due to tachycardia and low blood pressure. Will continue with aggressive IV fluid hydration. Will continue with Levaquin. brought all medications from home. Medications reviewed from home. Patient takes multiple medications that can cause elevation in liver function tests. This includes Buspar, Celexa, Doans OTC, Fenofibrate, meloxicam, Tylenol, and Metformin. She also had old bottles of amoxicillin. It is unclear what she takes on a regular basis. Patient is a poor historian. She does report that she takes a lot of medications for pain throughout the day. Will check MRI of liver. GI started Mucomyst yesterday. Will continue to monitor liver function closely. Await hepatitis panel. Will recheck pro calcitonin. Will send lab for autoimmune disease of the liver. Will discuss with pharmacy to evaluate all medications and limit or discontinue medications that may affect her her liver. Case discussed at length with patient and . Will continue monitor closely. Will discuss further with GI. Elevated liver function with hyperbilirubinemia possible hepatitis or overdose of multiple medications causing acute hepatitis complicated with fatty liver: Continue as above. Will monitor liver function closely. Pharmacy to monitor and adjust medication as well. Will discuss with GI. Patient on Mucomyst. MRI of liver pending. Diabetes mellitus type 2 non-insulin dependent, uncontrolled, A1c 8.4: Will continue with sliding scale. Will increase Lantus for better diabetic control. Will hold home medications-metformin and glipizide. Hypertension: Will discontinue blood pressure medication due to low blood pressure. Will continue to monitor closely. Asthma: Will continue with Brovana and breathing treatments. Overall stable. Will maintain sats above 90%. Will monitor closely. Right sided abdominal wall atrophy with protrusion of right lateral abdomen and contents: No intra-abdominal acute abnormality. This is likely from multiple surgeries in the past. Thinning and convex bulging of the abdominal wall fascia noted. No large or measurable hernia defect noted. No heavy lifting, pushing or pulling recommended at this time. Obesity, BMI 35.4: Will continue with lifestyle modification education.
[2018-01-10 19:04] LABS: HBsAG Nonreactive (Nonreactive); Hepatitis A IgM Antibody Nonreactive
[2018-01-10] MEDS: IPRATROPIUM BROM 0.5MG/2.5ML NEB PRN (19:45)
[2018-01-11] MEDS: NA CHLORIDE 0.9% 1,000 ML IV SCH ×4 (02:30→21:22)
[2018-01-11 05:29] LABS: Absolute Lymphocytes (CBC) 4.2 K/uL (0.7-4.9); Absolute Monocytes 0.7 K/uL (0.1-1.3); Absolute Neutrophil 3.7 K/uL (1.8-8.0); Basophils % 0.7 % (0-1.3); Eosinophils % 2.6 % (0-4.4); Lymphocytes % 47.7 % (15.3-44.8); MCH 31.5 pg (27.0-35.0); MPV 10.8 fL (7.6-11.3); Monocytes % 7.5 % (3.3-12.3); RBC Red Blood Cell Count 3.44 M/uL (3.86-4.86)
[2018-01-11] MEDS: PANTOPRAZOLE 40MG TABLET PO SCH (05:35)
[2018-01-11 05:46] LABS: Protime INR 1.03
[2018-01-11 05:58] LABS: Albumin 2.7 g/dL (3.4-5.0); Alkaline Phosphatase 133 U/L (45-117); BUN Blood Urea Nitrogen 3 mg/dL (7-18); Bicarbonate 23 mmol/L (21-32); Bilirubin Direct 1.8 mg/dL (0-0.2); Bilirubin Total 2.4 mg/dL (0.2-1.0); Glucose Level 190 mg/dL (74-106); Potassium 3.6 mmol/L (3.5-5.1); Protein, Total 6.2 g/dL (6.4-8.2); Sodium Level 137 mmol/L (136-145)
[2018-01-11 05:59] LABS: ALT/SGPT 527 U/L (12-78); AST/SGOT 569 U/L (15-37)
[2018-01-11] MEDS ORDERED: POTASSIUM CL SA 10 MEQ TAB PO ONE (06:24)
[2018-01-11] MEDS ORDERED: INSULIN GLARGINE 100 UNITS/ML SQ SCH (08:00)
[2018-01-11] MEDS: ARFORMOTEROL TARTRATE 15 MCG/2 ML VIAL.NEB NEB SCH ×2 (08:00→19:37)
[2018-01-11] MEDS: INSULIN -REGULAR HUMAN 50 UNIT/0.5 ML ML SQ SCH ×4 (08:00→21:22)
--- NOTE | 2018-01-11 09:09 | P.PN ---
Subjective Date of Service: 01/10/18 Subjective: No new changes, No C/O voiced Patient's LFTs have continued to worsen. Patient had MRI of the abdomen with contrast that did not reveal any liver abnormalities. Possible autoimmune hepatitis. Auto antibodies pending. Could have Budd-Chiari syndrome. MRA pending. Continue monitoring LFTs and recheck coagulation profile and await auto-antibody studies. Review of Systems 10-point ROS is otherwise unremarkable Physical Examination - Vital Signs Temperature: 97.5 F Blood Pressure: 105/49 Pulse: 95 Respirations: 18 Pulse Ox (%): 97 - Physical Exam General: Alert, In no apparent distress, Oriented x2 Respiratory: Clear to auscultation bilaterally, Normal air movement Cardiovascular: Regular rate/rhythm, Normal S1 S2 Gastrointestinal: Normal bowel sounds, Hypoactive, No tenderness, Other (Large hernia abdomen is distended), Distended Integumentary: Tenderness/swelling Neurological: Sensation intact, Cranial nerves 3-12 intact Lymphatics: No axilla or inguinal lymphadenopathy - Studies Medications List Reviewed: Yes Assessment & Plan - Problems (Diagnosis) (1) Abnormal liver enzymes Current Visit: Yes Status: Acute (2) Acute hepatic failure Current Visit: Yes Status: Acute (3) Diabetes mellitus, type II Onset Date: 01/08/18 Current Visit: Yes Status: Acute (4) Fatty liver Onset Date: 01/08/18 Current Visit: Yes Status: Acute (5) Hypertension Onset Date: 01/08/18 Current Visit: Yes Status: Acute (6) Obesity (BMI 30-39.9) Current Visit: Yes Status: Acute - Plan Plan: 1. Check auto-antibodies and rule out autoimmune hepatitis 2. Rule out hepatic vein thrombosis 3. Continue Mucomyst 4. May need to go check ammonia level 5. Monitor labs closely 6. GI and DVT prophylaxis - Advance Directives Does patient have a Living Will: No Does patient have a Durable POA for Healthcare: No Critical Care: No Time Spent Managing PTS Care (In Minutes): 25
[2018-01-11] MEDS: ENOXAPARIN 40 MG/0.4 ML SQ SCH (10:12)
[2018-01-11] MEDS: DOCUSATE NA 100 MG CAP PO SCH (10:14)
[2018-01-11] MEDS: CETIRIZINE HCL 5 MG TABLET PO SCH (10:14)
--- NOTE | 2018-01-11 10:56 | P.PN ---
Subjective Date of Service: 01/11/18 Primary Care Provider: Dr. Renteria; [facility], [place] Chief Complaint: Fever, chills, elevated liver chemistries, acute hepatic failure Subjective: Improving (Patient feeling better today. She desires to ambulate) Physical Examination - Vital Signs Temperature: 97.5 F Blood Pressure: 105/49 Pulse: 95 Respirations: 18 Pulse Ox (%): 97 - Physical Exam General: Alert, In no apparent distress, Oriented x3, Cooperative HEENT: Atraumatic Neck: Supple Respiratory: Clear to auscultation bilaterally, Normal air movement Cardiovascular: Normal pulses, Regular rate/rhythm Gastrointestinal: Normal bowel sounds, Soft and benign, Non-distended, No tenderness, No masses, No rebound, No guarding Musculoskeletal: No erythema, No tenderness, No warmth Integumentary: No tenderness/swelling, No erythema, No warmth, No cyanosis Neurological: Normal speech, Normal strength at 5/5 x4 extr, Normal tone, Normal affect - Studies Medications List Reviewed: Yes Assessment & Plan Discharge Plan: Home Plan to discharge in: 72 Hours Physician Review Additional Text: Impression: Fever, chills, abdominal pain, tachycardia secondary to UTI with urine culture positive for E coli with severe sepsis complicated with elevated liver function likely related to acute hepatitis versus medication overdose including multiple medications for pain Elevated liver function with hyperbilirubinemia possible hepatitis or overdose of multiple medications causing acute hepatitis complicated with fatty liver Diabetes mellitus type 2 non-insulin dependent, A1c 8.4, uncontrolled Hypertension Asthma Right sided abdominal wall atrophy with protrusion of right lateral abdomen and contents: Obesity, BMI 35.4 Plan: Fever, chills, abdominal pain, tachycardia secondary to UTI with urine culture positive for E coli with severe sepsis complicated with elevated liver function likely related to acute hepatitis versus medication overdose including multiple medications for pain: Patient continues to improve. Continue with IV fluid hydration. Patient on Levaquin for UTI. Medications reviewed yesterday. Patient to continue with Mucomyst. Case discussed at length with GI yesterday. CT scan abdomen/chest and MRI shows no acute findings except for fatty liver. Autoimmune workup pending. Hepatitis panel pending. Liver function tests appeared to have peaked. Will continue to monitor closely. Will ambulate with physical therapy. Will monitor closely. Lifestyle modification and education on multi pharmacy address with patient. Patient understands this. Elevated liver function with hyperbilirubinemia possible hepatitis or overdose of multiple medications causing acute hepatitis complicated with fatty liver: Continue as above. Liver function tests appear to have peaked. Will monitor liver function closely. Pharmacy to monitor and adjust medication as well. Patient to continue to finish Mucomyst. MRI of liver showed no acute abnormality. CT angiogram of abdomen and chest unremarkable. Diabetes mellitus type 2 non-insulin dependent, uncontrolled, A1c 8.4: Will continue with sliding scale. Will continue to increase Lantus for better diabetic control. Will hold home medications-metformin and glipizide. Hypertension: Will discontinue blood pressure medication due to low blood pressure. Will continue to monitor closely. Asthma: Will continue with Brovana and breathing treatments. Overall stable. Will maintain sats above 90%. Will monitor closely. Right sided abdominal wall atrophy with protrusion of right lateral abdomen and contents: No intra-abdominal acute abnormality. This is likely from multiple surgeries in the past. Thinning and convex bulging of the abdominal wall fascia noted. No large or measurable hernia defect noted. No heavy lifting, pushing or pulling recommended at this time. Obesity, BMI 35.4: Will continue with lifestyle modification education. Time Spent Managing Pts Care (In Minutes): 55
--- NOTE | 2018-01-11 15:13 | P.PN ---
Subjective Date of Service: 01/11/18 Primary Care Provider: Dr. Renteria; [facility], [place] Chief Complaint: Fever, chills, elevated liver chemistries, acute hepatic failure Subjective: Improving (Feels much better, smiling, joking, sitting up in bed. Tolerating po diet well. Concerned about her 27 y.o. grandson - missing in [place] for the past 2 days, wants to leave to help find him. No medical complaints today. She wants to go dancing "right now.") Review of Systems 10-point ROS is otherwise unremarkable General: Weakness (improved ) Physical Examination - Vital Signs Temperature: 97.8 F Blood Pressure: 120/78 Pulse: 101 Respirations: 18 Pulse Ox (%): 96 - Physical Exam General: Alert, In no apparent distress, Oriented x3, Cooperative HEENT: Atraumatic, Normocephalic, PERRLA, EOMI Neck: Supple Respiratory: Normal air movement Cardiovascular: Normal pulses Gastrointestinal: Soft and benign (obese), No tenderness, No rebound, No guarding Neurological: Normal speech, Normal strength at 5/5 x4 extr - Studies Medications List Reviewed: Yes Assessment And Plan - Current Problems (Diagnosis) (1) Abnormal liver enzymes Current Visit: Yes Status: Acute Comment: s/p IV mucomyst therapy. Infectious hepatitis? Has UTI now. AST now declining. (2) Acute hepatic failure Current Visit: Yes Status: Acute (3) Obesity (BMI 30-39.9) Current Visit: Yes Status: Acute (4) Hematochezia Current Visit: Yes Status: Acute Comment: Long-term. Will need outpatient colonoscopy. (5) Fatty liver Onset Date: 01/08/18 Current Visit: Yes Status: Acute - Plan REC: 1) monitor liver #s and PT/INR daily 2) continue po diet 3) have pharmacy review all her home medications for potential cause of hepatic failure 4) ensure no biliary disorder 5) treat UTI Physician Review Additional Text: Impression: Fever, chills, abdominal pain, tachycardia secondary to UTI with urine culture positive for E coli with severe sepsis complicated with elevated liver function likely related to acute hepatitis versus medication overdose including multiple medications for pain Elevated liver function with hyperbilirubinemia possible hepatitis or overdose of multiple medications causing acute hepatitis complicated with fatty liver Diabetes mellitus type 2 non-insulin dependent, A1c 8.4, uncontrolled Hypertension Asthma Right sided abdominal wall atrophy with protrusion of right lateral abdomen and contents: Obesity, BMI 35.4 Plan: Fever, chills, abdominal pain, tachycardia secondary to UTI with urine culture positive for E coli with severe sepsis complicated with elevated liver function likely related to acute hepatitis versus medication overdose including multiple medications for pain: Patient continues to improve. Continue with IV fluid hydration. Patient on Levaquin for UTI. Medications reviewed yesterday. Patient to continue with Mucomyst. Case discussed at length with GI yesterday. CT scan abdomen/chest and MRI shows no acute findings except for fatty liver. Autoimmune workup pending. Hepatitis panel pending. Liver function tests appeared to have peaked. Will continue to monitor closely. Will ambulate with physical therapy. Will monitor closely. Lifestyle modification and education on multi pharmacy address with patient. Patient understands this. Elevated liver function with hyperbilirubinemia possible hepatitis or overdose of multiple medications causing acute hepatitis complicated with fatty liver: Continue as above. Liver function tests appear to have peaked. Will monitor liver function closely. Pharmacy to monitor and adjust medication as well. Patient to continue to finish Mucomyst. MRI of liver showed no acute abnormality. CT angiogram of abdomen and chest unremarkable. Diabetes mellitus type 2 non-insulin dependent, uncontrolled, A1c 8.4: Will continue with sliding scale. Will continue to increase Lantus for better diabetic control. Will hold home medications-metformin and glipizide. Hypertension: Will discontinue blood pressure medication due to low blood pressure. Will continue to monitor closely. Asthma: Will continue with Brovana and breathing treatments. Overall stable. Will maintain sats above 90%. Will monitor closely. Right sided abdominal wall atrophy with protrusion of right lateral abdomen and contents: No intra-abdominal acute abnormality. This is likely from multiple surgeries in the past. Thinning and convex bulging of the abdominal wall fascia noted. No large or measurable hernia defect noted. No heavy lifting, pushing or pulling recommended at this time. Obesity, BMI 35.4: Will continue with lifestyle modification education.
[2018-01-11] MEDS: LACTULOSE 20 GM/30 ML UCUP PO PRN (17:48)
[2018-01-12] MEDS: NA CHLORIDE 0.9% 1,000 ML IV SCH (05:42)
[2018-01-12] MEDS: PANTOPRAZOLE 40MG TABLET PO SCH (05:42)
[2018-01-12 06:00] LABS: Absolute Lymphocytes (CBC) 5.8 K/uL (0.7-4.9); Absolute Monocytes 0.7 K/uL (0.1-1.3); Absolute Neutrophil 3.6 K/uL (1.8-8.0); Basophils % 0.4 % (0-1.3); Eosinophils % 2.5 % (0-4.4); Hematocrit 31.8 % (36.0-45.0); Lymphocytes % 55.6 % (15.3-44.8); MPV 10.5 fL (7.6-11.3); Monocytes % 6.7 % (3.3-12.3); RBC Red Blood Cell Count 3.42 M/uL (3.86-4.86)
[2018-01-12 06:23] LABS: AST/SGOT 295 U/L (15-37); Albumin 2.8 g/dL (3.4-5.0); Alkaline Phosphatase 156 U/L (45-117); BUN Blood Urea Nitrogen 4 mg/dL (7-18); Bicarbonate 22 mmol/L (21-32); Bilirubin Direct 1.5 mg/dL (0-0.2); Bilirubin Total 1.8 mg/dL (0.2-1.0); Glucose Level 231 mg/dL (74-106); Magnesium 1.8 mg/dL (1.8-2.4); Potassium 3.6 mmol/L (3.5-5.1); Protein, Total 6.2 g/dL (6.4-8.2); Sodium Level 140 mmol/L (136-145)
[2018-01-12 06:25] LABS: ALT/SGPT 415 U/L (12-78); Blood Morphology Comment NOT SEEN (NOT SEEN); Platelet Estimate ADEQ; Urine White Blood Cell Casts OK
[2018-01-12] MEDS ORDERED: MAGNESIUM SULFATE 1 gm IVPB 1 GM/100 ML BAG IV ONE (06:27)
[2018-01-12] MEDS ORDERED: POTASSIUM CL SA 10 MEQ TAB PO ONE (06:27)
[2018-01-12] MEDS: INSULIN -REGULAR HUMAN 50 UNIT/0.5 ML ML SQ SCH ×2 (07:30→11:57)
[2018-01-12] MEDS ORDERED: INSULIN GLARGINE 100 UNITS/ML SQ SCH (08:00)
[2018-01-12] MEDS: ARFORMOTEROL TARTRATE 15 MCG/2 ML VIAL.NEB NEB SCH (08:05)
[2018-01-12] MEDS: DOCUSATE NA 100 MG CAP PO SCH (09:00)
[2018-01-12] MEDS: ENOXAPARIN 40 MG/0.4 ML SQ SCH (10:50)
[2018-01-12] MEDS: CETIRIZINE HCL 5 MG TABLET PO SCH (10:50)
--- NOTE | 2018-01-12 12:28 | P.PN ---
Subjective Date of Service: 01/12/18 Primary Care Provider: Dr. Renteria; [facility], [place] Chief Complaint: Fever, chills, elevated liver chemistries, acute hepatic failure Subjective: Improving (She feels much better and energetic. 27 y.o. grandson in [place] has been found - out partying. She wants to go home and to [place] to see her doctor (30+ years for her liver). She denies abdominal pain , N/V, F/C, dysuria.) Review of Systems Unremarkable Physical Examination - Vital Signs Temperature: 97.4 F Blood Pressure: 141/77 Pulse: 104 Respirations: 20 Pulse Ox (%): 100 - Physical Exam General: Alert, In no apparent distress, Oriented x3, Cooperative HEENT: Atraumatic, Normocephalic, PERRLA, EOMI Neck: Supple Respiratory: Normal air movement Cardiovascular: Normal pulses Gastrointestinal: Soft and benign (obese), No tenderness, No rebound, No guarding Neurological: Normal speech, Normal strength at 5/5 x4 extr - Studies Medications List Reviewed: Yes Assessment And Plan - Current Problems (Diagnosis) (1) Abnormal liver enzymes Current Visit: Yes Status: Acute Comment: s/p IV mucomyst therapy. Infectious hepatitis? Has UTI now. AST/ALT now declining. (2) Acute hepatic failure Current Visit: Yes Status: Acute (3) Obesity (BMI 30-39.9) Current Visit: Yes Status: Acute (4) Hematochezia Current Visit: Yes Status: Acute Comment: Long-term. Will need outpatient colonoscopy. (5) Fatty liver Onset Date: 01/08/18 Current Visit: Yes Status: Acute - Plan REC: 1) monitor liver #s and PT/INR daily 2) continue po diet 3) GI clinic f/u in 1 week to ensure liver chemistries have normalized 4) will need comprehensive back pain evaluation and therapy to prevent polypharmacy back pain medication induced liver injury being repeated in the future, & adjust her psych medications for same reason Physician Review Additional Text: Impression: Fever, chills, abdominal pain, tachycardia secondary to UTI with urine culture positive for E coli with severe sepsis complicated with elevated liver function likely related to acute hepatitis versus medication overdose including multiple medications for pain Elevated liver function with hyperbilirubinemia possible hepatitis or overdose of multiple medications causing acute hepatitis complicated with fatty liver Diabetes mellitus type 2 non-insulin dependent, A1c 8.4, uncontrolled Hypertension Asthma Right sided abdominal wall atrophy with protrusion of right lateral abdomen and contents: Obesity, BMI 35.4 Plan: Fever, chills, abdominal pain, tachycardia secondary to UTI with urine culture positive for E coli with severe sepsis complicated with elevated liver function likely related to acute hepatitis versus medication overdose including multiple medications for pain: Patient continues to improve. Continue with IV fluid hydration. Patient on Levaquin for UTI. Medications reviewed yesterday. Patient to continue with Mucomyst. Case discussed at length with GI yesterday. CT scan abdomen/chest and MRI shows no acute findings except for fatty liver. Autoimmune workup pending. Hepatitis panel pending. Liver function tests appeared to have peaked. Will continue to monitor closely. Will ambulate with physical therapy. Will monitor closely. Lifestyle modification and education on multi pharmacy address with patient. Patient understands this. Elevated liver function with hyperbilirubinemia possible hepatitis or overdose of multiple medications causing acute hepatitis complicated with fatty liver: Continue as above. Liver function tests appear to have peaked. Will monitor liver function closely. Pharmacy to monitor and adjust medication as well. Patient to continue to finish Mucomyst. MRI of liver showed no acute abnormality. CT angiogram of abdomen and chest unremarkable. Diabetes mellitus type 2 non-insulin dependent, uncontrolled, A1c 8.4: Will continue with sliding scale. Will continue to increase Lantus for better diabetic control. Will hold home medications-metformin and glipizide. Hypertension: Will discontinue blood pressure medication due to low blood pressure. Will continue to monitor closely. Asthma: Will continue with Brovana and breathing treatments. Overall stable. Will maintain sats above 90%. Will monitor closely. Right sided abdominal wall atrophy with protrusion of right lateral abdomen and contents: No intra-abdominal acute abnormality. This is likely from multiple surgeries in the past. Thinning and convex bulging of the abdominal wall fascia noted. No large or measurable hernia defect noted. No heavy lifting, pushing or pulling recommended at this time. Obesity, BMI 35.4: Will continue with lifestyle modification education.
--- NOTE | 2018-01-12 14:52 | P.DS ---
Admission Date: 01/07/18 Discharge Date: 01/12/18 Primary Care Provider: Dr. Renteria; [place], [place] Disposition: ROUTINE DISCHARGE Discharge Condition: GOOD Reason for Admission: Fever, chills, elevated liver chemistries, acute hepatic failure Consultations: Dr. jang Brief History of Present Illness: Patient is 68 years of age admitted with henna systemic symptoms of fever shortness of breath was found to have acute liver injury possible easy induced by a excessive use of Tylenol he was given some acid dial sustain although her acetaminophen level was low urinalysis with positive for nitrites and urine culture was also positive E. coli isolated Hospital Course: Patient was given some Mucomyst she did well at the time of discharge doing well denied any pain shortness of breath vital signs all stable room-air oxygenation satisfactory liver function tests were all declining blood pressure on oxygen a gonzalez normal patient has had a cholecystectomy done extensive workup did not show any significant pathology apart from fatty liver she is to follow up with the primary care physician in a week or all lab works including x-ray results will be provided to the patient Vital Signs/Physical Exam: Temp Pulse Resp BP Pulse Ox 97.4 F 104 H 20 141/77 H 100 01/12/18 12:28 01/12/18 12:28 01/12/18 12:28 01/12/18 12:28 01/12/18 12:28 Laboratory Data at Discharge: WBC 10.5 K/uL (4.3-10.9) D 01/12/18 05:29 Hgb 10.6 g/dL (12.0-15.0) L 01/12/18 05:29 Hct 31.8 % (36.0-45.0) L 01/12/18 05:29 Plt Count 112 K/uL (152-406) L 01/12/18 05:29 PT 12.2 SECONDS (9.5-12.5) 01/11/18 04:46 INR 1.03 01/11/18 04:46 APTT 31.4 SECONDS (24.3-36.9) 01/11/18 04:46 Sodium 140 mmol/L (136-145) 01/12/18 05:29 Potassium 3.6 mmol/L (3.5-5.1) 01/12/18 05:29 BUN 4 mg/dL (7-18) L 01/12/18 05:29 Creatinine 0.60 mg/dL (0.55-1.3) 01/12/18 05:29 Glucose 231 mg/dL (74-106) H 01/12/18 05:29 Magnesium 1.8 mg/dL (1.8-2.4) 01/12/18 05:29 Total Bilirubin 1.8 mg/dL (0.2-1.0) H 01/12/18 05:29 AST 295 U/L (15-37) H D 01/12/18 05:29 ALT 415 U/L (12-78) H* D 01/12/18 05:29 Alkaline Phosphatase 156 U/L (45-117) H 01/12/18 05:29 Lipase 203 U/L (73-393) 01/07/18 15:35 Home Medications: Lisinopril [Prinivil] 20 mg PO DAILY 01/07/18 Metformin ER [Glucophage ER] 1,000 mg PO BID 01/07/18 diazePAM [Valium] 5 mg PO BEDTIME PRN 01/08/18 Acetaminophen [Tylenol Extra Strength] 5 tab PO Q6H 01/10/18 Buspirone HCl [Buspar] 1 tab PO DAILY 01/10/18 Citalopram Hydrobromide [Citalopram HBr] 1 tab PO DAILY 01/10/18 Doans 1,740 mg PO Q6H 01/10/18 Fenofibrate [Lipofen] 1 cap PO DAILY 01/10/18 Gabapentin [Neurontin*] 2 cap PO BID 01/10/18 Ibuprofen [Advil] 400 mg PO Q6H 01/10/18 Meloxicam 30 mg PO DAILY 01/10/18 Metoprolol Succinate [Kapspargo Sprinkle] 1 tab PO DAILY 01/10/18 Pantoprazole [Protonix Tab*] 1 tab PO BID 01/10/18
[2018-01-15 04:03] LABS: Immunoglobulin G 752 mg/dL (694-1618)
[2018-01-16 03:19] LABS: HBsAG Nonreactive (Nonreactive); Hepatitis A IgM Antibody Nonreactive
== END 2018-01-12 15:47 | disposition home or self-care (01) | DRG 871 ==
LOC: ER 14:07 → ERHOLD 17:39 → 2ND 19:57
PROVIDERS: ADMIT Family Medicine; ATTEND Internal Medicine Sleep Medicine
DX: A41.9 Sepsis, unspecified organism (principal); R65.21 Severe sepsis with septic shock; K72.00 Acute and subacute hepatic failure without coma; N39.0 Urinary tract infection, site not specified; E87.1 Hypo-osmolality and hyponatremia; K92.1 Melena; B96.20 Unspecified Escherichia coli [E. coli] as the cause of diseases classified elsewhere; J45.909 Unspecified asthma, uncomplicated; I10 Essential (primary) hypertension; K76.0 Fatty (change of) liver, not elsewhere classified; E11.40 Type 2 diabetes mellitus with diabetic neuropathy, unspecified; K46.9 Unspecified abdominal hernia without obstruction or gangrene; R00.0 Tachycardia, unspecified; E66.9 Obesity, unspecified; Z68.35 Body mass index [BMI] 35.0-35.9, adult; E87.6 Hypokalemia; F32.9 Major depressive disorder, single episode, unspecified; F41.9 Anxiety disorder, unspecified; Z79.84 Long term (current) use of oral hypoglycemic drugs; E86.0 Dehydration
CPT/HCPCS: 36415; 71045; 71275; 74177; 74181; 76700; 80048; 80053; 80074; 80076; 80329; 81003; 81015; 82550; 82553; 82784; 82962; 83036; 83605; 83690; 83735; 83880; 84145; 84484; 85025; 85379; 85610; 85652; 85730; 86038; 86140; 86255; 86376; 86430; 87040; 87070; 87077; 87081; 87086; 87088; 87186; 87389; 87804; 93005; 93306; 94640; 96361; 96374; 96375; 97163; 99285; J0132; J0696; J1650; J2405; J2930; J3475; J7030; J7060; J7605; Q9967

== ENCOUNTER 2018-03-17 19:37 | Emergency (ER) | payer OTHER ==
[2018-03-17] MEDS ORDERED: FAMOTIDINE 20 MG/2 ML VIAL IV ONE (21:50)
[2018-03-17] MEDS ORDERED: ONDANSETRON 4 MG/2 ML VIAL ONE (21:50)
[2018-03-17] MEDS ORDERED: MORPHINE 4 MG/ML SYR ONE (21:50)
[2018-03-17] MEDS ORDERED: NA CHLORIDE 0.9% 1,000 ML ONE (21:50)
[2018-03-17 22:17] LABS: Absolute Lymphocytes (CBC) 2.6 K/uL (0.7-4.9); Absolute Monocytes 0.5 K/uL (0.1-1.3); Absolute Neutrophil 3.9 K/uL (1.8-8.0); Basophils % 0.9 % (0-1.3); Eosinophils % 3.3 % (0-4.4); Hematocrit 35.8 % (36.0-45.0); Lymphocytes % 35.7 % (15.3-44.8); MPV 9.6 fL (7.6-11.3); Monocytes % 7.4 % (3.3-12.3); RBC Red Blood Cell Count 4.18 M/uL (3.86-4.86)
[2018-03-17 22:22] LABS: Protime INR 0.96
[2018-03-17 22:32] LABS: ALT/SGPT 27 U/L (12-78); AST/SGOT 21 U/L (15-37); Albumin 3.5 g/dL (3.4-5.0); Alkaline Phosphatase 181 U/L (45-117); BUN Blood Urea Nitrogen 14 mg/dL (7-18); Bicarbonate 20 mmol/L (21-32); Bilirubin Direct < 0.1 mg/dL (0-0.2); Bilirubin Total 0.2 mg/dL (0.2-1.0); Glucose Level 392 mg/dL (74-106); Lipase 165 U/L (73-393); NT PRO-BNP 15 pg/mL (<125); Potassium 4.4 mmol/L (3.5-5.1); Protein, Total 7.3 g/dL (6.4-8.2); Sodium Level 133 mmol/L (136-145); Troponin (Emerg Dept Use Only) < 0.02 ng/mL (0.0-0.045)
--- NOTE | 2018-03-18 01:46 | ER ---
Nurse's Notes [facility] Name: Judi Cao Age: 68 yrs Sex: Female : 1950 Arrival Date: 03/17/2018 Time: 19:39 Bed 30 Private MD: Diagnosis: Abdominal and pelvic pain Presentation: 03/17 19:48 Presenting complaint: Patient states: she is having abdominal pain, vomiting, bloating bb x 1 week, pt bitten by dog 2 weeks ago was seen by doctor's in [place] for dog bites but they are still hurting, also she has been losing a lot of weight lately and she cries every time somebody talks to her pt was living with her daughter for several months but has moved back with her who "treats her like a baby" pt is crying in triage. Transition of care: patient was not received from another setting of care. Onset of symptoms is unknown. Risk Assessment: Do you want to hurt yourself or someone else? Patient reports no desire to harm self or others. Initial Sepsis Screen: Does the patient meet any 2 criteria? No. Patient's initial sepsis screen is negative. Does the patient have a suspected source of infection? No. Patient's initial sepsis screen is negative. Care prior to arrival: None. 19:48 Method Of Arrival: Ambulatory bb 19:48 Acuity: GEORGE 2 bb 19:48 Note pt states sometimes she is unable to sleep for 3 or 4 days at a time. bb Historical: - Allergies: 19:54 No Known Allergies; bb - Home Meds: 19:54 lisinopril Oral [Active]; metformin 1,000 mg Oral tab 1 tab 2 times per day [Active]; bb Symbicort 80-4.5 mcg/actuation inhalation HFAA 2 puffs 2 times per day [Active]; Advair Diskus 250-50 mcg/dose Inhl dsdv 1 puff 2 times per day [Active]; Albuterol Inhl [Active]; - PMHx: 19:54 Anxiety; Asthma; Chronic pain; Cirrhosis; Depression; Diabetes - NIDDM; Hypertension; bb - PSHx: 19:54 Cholecystectomy; left shoulder; Hysterectomy; Hernia repair; bb - Immunization history:: Adult Immunizations up to date. - Social history:: Smoking status: Patient uses tobacco products, denies chronic smoking, but will smoke occasionally, Patient/guardian denies using alcohol. - Ebola Screening: : No symptoms or risks identified at this time. Screenin:41 Abuse screen: Denies threats or abuse. Nutritional screening: No deficits noted. tl3 Tuberculosis screening: No symptoms or risk factors identified. Fall Risk None identified. Assessment: 20:41 General: Appears uncomfortable, well developed, well nourished, Behavior is calm, tl3 cooperative, appropriate for age. Pain: Complains of pain in abdomen, left hand, right ankle, left forearm, right hip. Pain:. Neuro: Level of Consciousness is awake, alert, obeys commands, Oriented to person, place, time, situation, Appropriate for age. Cardiovascular: Patient's skin is warm and dry. Respiratory: Airway is patent Respiratory effort is even, unlabored, Respiratory pattern is regular, symmetrical. GI: Bowel sounds present X 4 quads. Abd is soft and non tender X 4 quads. : No signs and/or symptoms were reported regarding the genitourinary system. EENT: No signs and/or symptoms were reported regarding the EENT system. Derm: Wound noted Wound is multiple dry and healed abrasions and bite sheppard to left hand, forearm right ankle. 23:20 Reassessment: Patient appears in no apparent distress at this time. No changes from tl3 previously documented assessment. Patient and/or family updated on plan of care and expected duration. Pain level reassessed. Patient is alert, oriented x 3, equal unlabored respirations, skin warm/dry/pink. pt awaiting CT. 03/18 00:41 Reassessment: Patient appears in no apparent distress at this time. Patient and/or mg2 family updated on plan of care and expected duration. Pain level reassessed. Patient is alert, oriented x 3, equal unlabored respirations, skin warm/dry/pink. 01:02 Reassessment: Patient appears in no apparent distress at this time. No changes from tl3 previously documented assessment. Patient and/or family updated on plan of care and expected duration. Pain level reassessed. Patient is alert, oriented x 3, equal unlabored respirations, skin warm/dry/pink. pt sleeping quietly, IV infusing without difficulty. Vital Signs: 03/17 19:54 BP 115 / 71; Pulse 105; Resp 16 S; Temp 98.3(O); Pulse Ox 99% on R/A; Weight 74.4 kg bb (M); Height 4 ft. 11 in. (149.86 cm) (R); Pain 9/10; 20:56 BP 108 / 64; Pulse 94; Resp 18; Pulse Ox 98% ; tl3 22:09 BP 102 / 90; Pulse 93; Resp 18; Pulse Ox 98% ; tl3 23:20 BP 118 / 94; Pulse 94; Resp 18; Pulse Ox 100% on R/A; tl3 03/18 00:42 BP 113 / 55; Pulse 93; Resp 18; Pulse Ox 98% on R/A; Pain 0/10; mg2 01:02 BP 114 / 78; Pulse 92; Resp 16; Pulse Ox 98% on R/A; tl3 02:08 BP 118 / 78; Pulse 90; Resp 18; Pulse Ox 100% on R/A; Pain 0/10; mg2 03/17 19:54 Body Mass Index 33.13 (74.40 kg, 149.86 cm) bb ED Course: 03/17 19:39 Patient arrived in ED. am2 19:52 Triage completed. bb 19:54 Arm band placed on left wrist. Patient placed in an exam room, on a stretcher, on pulse bb oximetry. Family accompanied patient. 19:56 Andressa Storey RN is Primary Nurse. tl3 20:40 Augusto Brito MD is Attending Physician. wilmer 20:41 Patient has correct armband on for positive identification. Bed in low position. Call tl3 light in reach. Side rails up X 1. Warm blanket given. 20:41 No provider procedures requiring assistance completed. tl3 21:54 XRAY Chest (1 view) In Process Unspecified. EDMS 21:57 Inserted saline lock: 20 gauge in right antecubital area, using aseptic technique. mg2 Blood collected. 21:59 Jose Martins PA is PHCP. jr8 23:[address] via stretcher. kw1 03/18 00:05 CT completed. Patient tolerated procedure well. Patient moved back from CT. kw1 00:12 CT Abd/Pelvis - W/Contrast In Process Unspecified. EDMS 02:09 IV discontinued, intact, bleeding controlled, No redness/swelling at site. Pressure mg2 dressing applied. Administered Medications: 03/17 21:55 Drug: Zofran 4 mg Route: IVP; Infused Over: 2 mins; Site: right antecubital; tl3 03/18 01:05 Follow up: Response: No adverse reaction tl3 03/17 21:56 Drug: NS 0.9% 1000 ml Route: IV; Rate: 125 ml/hr; Site: right antecubital; mg2 03/18 02:08 Follow up: Response: No adverse reaction; IV Status: Order to discontinue infusion mg2 03/17 21:56 Drug: Pepcid 20 mg Route: IVP; Site: right antecubital; mg2 03/18 01:05 Follow up: Response: No adverse reaction tl3 03/17 21:56 Drug: morphine 2 mg Route: IVP; Site: right antecubital; mg2 03/18 01:05 Follow up: Response: No adverse reaction tl3 03/17 22:55 Not Given (pain-free): morphine 2 mg IVP once mg2 Outcome: 03/18 01:45 Discharge ordered by . jrLucy 02:09 Discharged to home via wheelchair, with family. mg2 02:09 Condition: stable 02:09 Discharge instructions given to patient, family, Instructed on discharge instructions, follow up and referral plans. Demonstrated understanding of instructions, follow-up care. 02:10 Patient left the ED. mg2 Signatures: Dispatcher [employer] EDMS Augusto Brito MD MD cha Ballard, Brenda, RN RN bb Jose Martins PA PA jr8 Sue Gonzalez am2 Luana Linda kw1 Andressa Storey RN RN tl3 Luis Hay RN RN mg2 Corrections: (The following items were deleted from the chart) 01:04 01:02 Reassessment: Patient appears in no apparent distress at this time. No changes tl3 from previously documented assessment. Patient and/or family updated on plan of care and expected duration. Pain level reassessed. Patient is alert, oriented x 3, equal unlabored respirations, skin warm/dry/pink. pt sleeping quietly tl3
--- NOTE | 2018-03-18 01:46 | EDPHYS ---
Physician Documentation [facility] Name: Judi Cao Age: 68 yrs Sex: Female : 1950 Arrival Date: 03/17/2018 Time: 19:39 Bed 30 Private MD: ED Physician Augusto Brito HPI: 03/17 21:17 This 68 yrs old Female presents to ER via Ambulatory with complaints of Hand wilmer Pain, Abdominal Pain. 21:17 The patient or guardian reports pain. wilmer Historical: - Allergies: 19:54 No Known Allergies; bb - Home Meds: 19:54 lisinopril Oral [Active]; metformin 1,000 mg Oral tab 1 tab 2 times per day [Active]; bb Symbicort 80-4.5 mcg/actuation inhalation HFAA 2 puffs 2 times per day [Active]; Advair Diskus 250-50 mcg/dose Inhl dsdv 1 puff 2 times per day [Active]; Albuterol Inhl [Active]; - PMHx: 19:54 Anxiety; Asthma; Chronic pain; Cirrhosis; Depression; Diabetes - NIDDM; Hypertension; bb - PSHx: 19:54 Cholecystectomy; left shoulder; Hysterectomy; Hernia repair; bb - Immunization history:: Adult Immunizations up to date. - Social history:: Smoking status: Patient uses tobacco products, denies chronic smoking, but will smoke occasionally, Patient/guardian denies using alcohol. - Ebola Screening: : No symptoms or risks identified at this time. ROS: 21:21 Constitutional: Negative for fever, chills, and weight loss, Eyes: Negative for injury, wilmer pain, redness, and discharge, ENT: Negative for injury, pain, and discharge, Neck: Negative for injury, pain, and swelling, Cardiovascular: Negative for chest pain, palpitations, and edema, Respiratory: Negative for shortness of breath, cough, wheezing, and pleuritic chest pain, Back: Negative for injury and pain, : Negative for injury, bleeding, discharge, and swelling, MS/Extremity: Negative for injury and deformity, Skin: Negative for injury, rash, and discoloration, Neuro: Negative for headache, weakness, numbness, tingling, and seizure, Psych: Negative for depression, anxiety, suicide ideation, homicidal ideation, and hallucinations, Allergy/Immunology: Negative for hives, rash, and allergies, Endocrine: Negative for neck swelling, polydipsia, polyuria, polyphagia, and marked weight changes, Hematologic/Lymphatic: Negative for swollen nodes, abnormal bleeding, and unusual bruising. 21:21 Abdomen/GI: Positive for abdominal pain, nausea and vomiting, diarrhea, of the right upper quadrant, left upper quadrant, right lower quadrant and left lower quadrant. Exam: 21:21 Constitutional: This is a well developed, well nourished patient who is awake, alert, wilmer and in no acute distress. Head/Face: Normocephalic, atraumatic. Eyes: Pupils equal round and reactive to light, extra-ocular motions intact. Lids and lashes normal. Conjunctiva and sclera are non-icteric and not injected. Cornea within normal limits. Periorbital areas with no swelling, redness, or edema. ENT: Nares patent. No nasal discharge, no septal abnormalities noted. Tympanic membranes are normal and external auditory canals are clear. Oropharynx with no redness, swelling, or masses, exudates, or evidence of obstruction, uvula midline. Mucous membranes moist. Neck: Trachea midline, no thyromegaly or masses palpated, and no cervical lymphadenopathy. Supple, full range of motion without nuchal rigidity, or vertebral point tenderness. No Meningismus. Chest/axilla: Normal chest wall appearance and motion. Nontender with no deformity. No lesions are appreciated. Cardiovascular: Regular rate and rhythm with a normal S1 and S2. No gallops, murmurs, or rubs. Normal PMI, no JVD. No pulse deficits. Respiratory: Lungs have equal breath sounds bilaterally, clear to auscultation and percussion. No rales, rhonchi or wheezes noted. No increased work of breathing, no retractions or nasal flaring. Back: No spinal tenderness. No costovertebral tenderness. Full range of motion. Skin: Warm, dry with normal turgor. Normal color with no rashes, no lesions, and no evidence of cellulitis. MS/ Extremity: Pulses equal, no cyanosis. Neurovascular intact. Full, normal range of motion. Neuro: Awake and alert, GCS 15, oriented to person, place, time, and situation. Cranial nerves II-XII grossly intact. Motor strength 5/5 in all extremities. Sensory grossly intact. Cerebellar exam normal. Normal gait. Psych: Awake, alert, with orientation to person, place and time. Behavior, mood, and affect are within normal limits. 21:21 Abdomen/GI: Inspection: distension, Bowel sounds: hyperactive, Palpation: moderate abdominal tenderness, in all quadrants, Liver: no appreciated palpable abnormalities, Hernia: not appreciated. Vital Signs: 19:54 BP 115 / 71; Pulse 105; Resp 16 S; Temp 98.3(O); Pulse Ox 99% on R/A; Weight 74.4 kg bb (M); Height 4 ft. 11 in. (149.86 cm) (R); Pain 9/10; 20:56 BP 108 / 64; Pulse 94; Resp 18; Pulse Ox 98% ; tl3 22:09 BP 102 / 90; Pulse 93; Resp 18; Pulse Ox 98% ; tl3 23:20 BP 118 / 94; Pulse 94; Resp 18; Pulse Ox 100% on R/A; tl3 03/18 00:42 BP 113 / 55; Pulse 93; Resp 18; Pulse Ox 98% on R/A; Pain 0/10; mg2 01:02 BP 114 / 78; Pulse 92; Resp 16; Pulse Ox 98% on R/A; tl3 02:08 BP 118 / 78; Pulse 90; Resp 18; Pulse Ox 100% on R/A; Pain 0/10; mg2 14 19:54 Body Mass Index 33.13 (74.40 kg, 149.86 cm) MDM: 03/17 20:40 Patient medically screened. [facility] 21:26 Data reviewed: vital signs, nurses notes, lab test result(s), EKG, radiologic studies, [facility] CT scan, plain films. 22:10 Data interpreted: Pulse oximetry: on room air is 98 %. [facility] 03/18 01:45 Counseling: I had a detailed discussion with the patient and/or guardian regarding: the [facility] historical points, exam findings, and any diagnostic results supporting the discharge/admit diagnosis, lab results, radiology results, the need for outpatient follow up, a family practitioner, a food editor, to return to the emergency department if symptoms worsen or persist or if there are any questions or concerns that arise at home. 03/17 21:17 Order name: Basic Metabolic Panel; Complete Time: 22:48 [facility] 03/17 21:17 Order name: CBC with Diff; Complete Time: 22:22 [facility] 03/17 21:17 Order name: LFT's; Complete Time: 22:48 [facility] 03/17 21:17 Order name: Magnesium; Complete Time: 22:48 [facility] 03/17 21:17 Order name: NT PRO-BNP; Complete Time: 22:48 [facility] 03/17 21:17 Order name: PT-INR; Complete Time: 22:48 [facility] 03/17 21:17 Order name: Troponin (emerg Dept Use Only); Complete Time: 22:48 [facility] 03/17 21:17 Order name: XRAY Chest (1 view) [facility] 03/17 21:17 Order name: Lipase; Complete Time: 22:48 [facility] 03/17 21:27 Order name: CT Abd/Pelvis - W/Contrast [facility] 03/17 21:17 Order name: EKG; Complete Time: 21:19 [facility] 03/17 21:17 Order name: Cardiac monitoring; Complete Time: 22:08 [facility] 03/17 21:17 Order name: EKG - Nurse/Tech; Complete Time: 22:08 [facility] 03/17 21:17 Order name: IV Saline Lock; Complete Time: 21:53 [facility] 03/17 21:17 Order name: Labs collected and sent; Complete Time: 21:53 [facility] 03/17 21:17 Order name: O2 Per Protocol; Complete Time: 21:53 [facility] 03/17 21:17 Order name: O2 Sat Monitoring; Complete Time: 21:53 [facility] Administered Medications: 03/17 21:55 Drug: Zofran 4 mg Route: IVP; Infused Over: 2 mins; Site: right antecubital; tl3 03/18 01:05 Follow up: Response: No adverse reaction [facility] 03/17 21:56 Drug: NS 0.9% 1000 ml Route: IV; Rate: 125 ml/hr; Site: right antecubital; mg2 03/18 02:08 Follow up: Response: No adverse reaction; IV Status: Order to discontinue infusion [facility] 03/17 21:56 Drug: Pepcid 20 mg Route: IVP; Site: right antecubital; mg2 03/18 01:05 Follow up: Response: No adverse reaction 3 03/17 21:56 Drug: morphine 2 mg Route: IVP; Site: right antecubital; mg2 03/18 01:05 Follow up: Response: No adverse reaction [facility] 03/17 22:55 Not Given (pain-free): morphine 2 mg IVP once mg2 Disposition: 03/18 06:50 Co-signature as Attending Physician, Augusto Brito MD I agree with the assessment and wilmer plan of care. Disposition: 03/18/18 01:45 Discharged to Home. Impression: Abdominal and pelvic pain. - Condition is Stable. - Discharge Instructions: Abdominal Pain, Adult. - Medication Reconciliation Form, Thank You Letter, Antibiotic Education, Prescription Opioid Use, Family Work Release form. - Follow up: Private Physician; When: 2 - 3 days; Reason: Recheck today's complaints, Continuance of care, Re-evaluation by your physician. - Problem is new. - Symptoms have improved. Signatures: Dispatcher [employer] EDMS Augusto Brito MD MD cha Ballard, Brenda, RN RN Jose Marshall PA PA jr8 Andressa Storey RN RN tl3 Luis Hay RN RN mg2 Corrections: (The following items were deleted from the chart) 02:10 01:45 03/18/2018 01:45 Discharged to Home. Impression: Abdominal and pelvic pain. mg2 Condition is Stable. Forms are Medication Reconciliation Form, Thank You Letter, Antibiotic Education, Prescription Opioid Use. Follow up: Private Physician; When: 2 - 3 days; Reason: Recheck today's complaints, Continuance of care, Re-evaluation by your physician. Problem is new. Symptoms have improved. jr8
--- NOTE | 2018-03-18 06:47 | EKG ---
Test Date: 2018-03-17 Test Time: 22:03:26 [employer] Counter[employer] Installer: TL MEASUREMENT RESULTS: Intervals: Rate: 94 NC: 160 QRSD: 76 QT: 352 QTc: 440 [place]: P: 26 NC: 160 QRS: 10 T: 48 INTERPRETIVE STATEMENTS: Normal sinus rhythm Normal ECG Compared to ECG 01/07/2018 15:14:14 Sinus tachycardia no longer present Electronically Signed On 03-18-18 06:46:12 [employer] by Nick Coughlin
--- NOTE | 2018-03-18 08:00 | RAD REPORT ---
EXAM DESCRIPTION: RAD - Chest Single View - 03/17/2018 9:54 pm CLINICAL HISTORY: ABDOMINAL DISTENTION Chest pain. COMPARISON: Chest Single View dated 01/08/2018; Chest Single View dated 01/07/2018; Chest Single View dated 08/12/2017; Chest Single View dated 01/09/2017 FINDINGS: Portable technique limits examination quality. The lungs are grossly clear. The heart is upper limit of normal in size. No displaced fractures.Mild degenerative change in both shoulders. IMPRESSION: No acute intrathoracic process suspected.
--- NOTE | 2018-03-18 08:09 | RAD REPORT ---
EXAM DESCRIPTION: CTAbdomen Pelvis W Contrast - 03/18/2018 5:00 am CLINICAL HISTORY: Abdominal pain. ABD PAIN COMPARISON: Abdomen Pelvis W Contrast dated 01/07/2018 TECHNIQUE: Biphasic CT imaging of the abdomen and pelvis was performed with 100 ml non-ionic IV cont rast. All CT scans are performed using dose optimization technique as appropriate and may include automated exposure control or mA/KV adjustment according to patient size. FINDINGS: The lung bases are clear. The liver, spleen, pancreas, adrenal glands and left kidney are within normal limits. 3 mm upper pole left renal calculus without hydronephrosis. No bowel obstruction, free air, free fluid or abscess. Atrophy and diastases right anterior abdominal and pelvic wall musculature again noted, unchanged. The appendix is normal. No evidence of signific ant lymphadenopathy. No suspicious bony findings. IMPRESSION: No acute intra-abdominal or pelvic finding. 3 mm left renal calculus without hydronephrosis.
== END 2018-03-18 02:10 | disposition home or self-care (01) ==
LOC: ER 19:37
DX: N20.0 Calculus of kidney (principal); R10.9 Unspecified abdominal pain; R11.2 Nausea with vomiting, unspecified; E11.9 Type 2 diabetes mellitus without complications; I10 Essential (primary) hypertension; J45.909 Unspecified asthma, uncomplicated; Z79.51 Long term (current) use of inhaled steroids; Z79.84 Long term (current) use of oral hypoglycemic drugs; Z79.899 Other long term (current) drug therapy; Z72.0 Tobacco use
CPT/HCPCS: 36415; 71045; 74177; 80048; 80076; 83690; 83735; 83880; 84484; 85025; 85610; 93005; 96361; 96374; 96375; 99284; J2405; J7030; Q9967